=== PATIENT | male | born 1955 | race Caucasian/White ===

== ENCOUNTER 2018-08-06 00:21 | Outpatient (CLI) | payer BC, SELFPAY ==
--- NOTE | 2018-08-06 15:22 | DI.RAD_ITS ---
SYMPTOMS/DIAGNOSIS: RIGHT SHOULDER PAIN, M25.511 RIGHT SHOULDER: There is mild spurring at the AC joint and tip of the acromion. There is mild spurring at the rim of the glenoid. There are a few subchondral cysts near the greater tuberosity. Spurring is also seen at the lesser tuberosity. IMPRESSION: Mild to moderate degenerative changes.
== END 2018-08-06 00:41 ==
PROVIDERS: PCP Internal Medicine; Visit Provider Nurse Practitioner
DX: M25.511 Pain in right shoulder (principal); M19.011 Primary osteoarthritis, right shoulder
CPT/HCPCS: 73030

== ENCOUNTER 2018-12-03 07:03 | Emergency (ER) | payer BC, SELFPAY ==
[2018-12-03 07:08] VITALS: BP 155/83; PULSE 89; RESP 20; TEMP 36.5; O2SAT 97
--- NOTE | 2018-12-03 07:20 | ED.GENADUL_ITS ---
Discharge Plan Disposition Patient Disposition: HOME Condition: Good Discharge Details Chief Complaint: GenMedical Clinical Impression: Abdominal pain, Groin pain Primary Care Provider: Fransisco Morales ED Provider: Yonny Villafuerte Home Meds and New Rx's Prescriptions: No Action omeprazole 20 MG capsule,delayed release(DR/EC) 20 mg PO DAILY RF: 0 alfuzosin 10 MG tablet extended release 24 hr 10 mg PO DAILY Qty: 90 RF: 4 finasteride [Proscar] 5 MG tablet 5 mg PO DAILY Qty: 90 RF: 0 bupropion HCl 150 MG tablet extended release 12 hr 150 mg PO BID RF: 0 ascorbic acid (vitamin C) [Vitamin C] 1,000 MG tablet extended release 1,000 mg PO DAILY RF: 0 cholecalciferol (vitamin D3) 1,000 UNITS tablet 3,000 unit PO DAILY RF: 0 naproxen sodium [Aleve] 220 MG capsule 220 - 440 mg PO PRN PRNRF: 0 Discharge Instructions Instructions: Abdominal Pain (ED) Additional Instructions: If you notice any worsening of your symptoms, or any new symptoms such as vomiting, diarrhea, fever, chills, shortness of breath, chest pain, numbness, weakness, or fainting , please return immediately to the emergency department for reevaluation. Please follow up with your primary care provider or your surgeon as soon as possible for reassessment and reevaluation. As always, it was a pleasure participating in your medical care today. Referrals: Fransisco Morales MD [Primary Care Provider] - Medical Decision Making <Misha Cleaning MD - Last Filed: 12/03/18 07:20> 63 yo male comes in with right sided lower abdomen/groin pain. States he has had prior inguinal hernia repairs but it has been over 2 years. Yesterday he startd to have pain in the right groin/abdomen area and continued today. HAs no inguinal hernia palpable on exam today, no scrotal swelling or tenderness of the testicles to suggest testicular torsion. He does have rlq tenderness without gurading or rebound. Will obain imaging to evaluate for potential appendicitis though I feel it is more likely a inguinal hernia that reduced prior to arrival. pt will be signed out to oncoming provider pending labs and imaging and disposition Differential Diagnosis inguinal hernia, appendicitis, groin strain <Yonny Villafuerte DO - Last Filed: 12/03/18 09:51> Case is signed out to me my my colleague Dr. Ronald Cleaning. We are pending CT results at that time. Laboratory workup is returned negative. CT abdomen pelvis per Dr. Yoo demonstrates no acute process. Laboratory workup shows no concerning red flags of bandemia, leukocytosis or other significant abnormalities. On reassessment the patient's pain is notably improved. On repeat abdominal exam there is no evidence of testicular tenderness or torsion, no abdominal tenderness, no guarding or rebound, no signs of an acute abdomen. Patient's clinical exam is clinically inconsistent with a testicular torsion, incarcerated or strangulated hernia, or acute abdominal process. Patient will be discharged home with close follow-up with his surgeons clinic. We discussed red flags which return. I have extensively reviewed the treatment plan and discharge instructions with the patient and their family. I have addressed all patient concerns at this time. The patient and family was made aware of what symptoms to monitor for that would warrant a return to the emergency department. Discussed the plan with the patient and family, they demonstrate verbal understanding and agreement with our assessment and plan at this time. HPI <Misha Cleaning MD - Last Filed: 12/03/18 07:20> General Mode of arrival: ambulatory . Date/Time Provider Initiated Documentation: 12/03/18 07:04 . Limitations to Documentation: no limitations . Information obtained by: patient . History of Present Illness 63 year old M presents to the emergency department with the chief complaint of groin/abdominal pain, described as moderate, Quality is described as aching, and is localized to the abdomen. Patient reports no radiation. Patient started experiencing this day(s) (1) and it has been constant. No relieving factors improve symptom(s), No exacerbating factors reported . Patient did receive the following treatments prior to arrival, none Related Data Home Medications Medication Instructions Recorded Confirmed bupropion HCl 150 mg PO BID 04/20/14 12/03/18 ascorbic acid (vitamin C) [Vitamin 1,000 mg PO DAILY 11/01/15 12/03/18 C] cholecalciferol (vitamin D3) 3,000 unit PO DAILY 11/01/15 12/03/18 naproxen sodium [Aleve] 220 - 440 mg PO PRN PRN 11/01/15 12/03/18 omeprazole 20 mg PO DAILY tab-cap 01/08/18 12/03/18 alfuzosin 10 mg PO DAILY #90 tab-cap 05/28/18 12/03/18 finasteride [Proscar] 5 mg PO DAILY #90 tab-cap 07/06/18 12/03/18 Previous Rx's Medication Instructions Recorded alfuzosin 10 mg PO DAILY #90 tab-cap 05/28/18 finasteride [Proscar] 5 mg PO DAILY #90 tab-cap 07/06/18 Allergies Allergy/AdvReac Type Severity Reaction Status Date / Time No Known Allergies Allergy Unverified 07/06/18 14:05 General Stated Complaint: GenMedical ARI: 4 Review of Systems <Misha Cleaning MD - Last Filed: 12/03/18 07:20> Review of Systems All systems reviewed & are unremarkable except as noted in HPI and below Constitutional Denies chills, Denies fever(s) and Denies weakness Cardiovascular Denies chest pain and Denies dyspnea Respiratory Denies dyspnea Gastrointestinal Denies vomiting Genitourinary Denies dysuria Musculoskeletal Denies joint swelling Neurologic Denies weakness PFSH <Misha Cleaning MD - Last Filed: 12/03/18 07:20> Medical History BPH (benign prostatic hyperplasia) Cough Depression GERD (gastroesophageal reflux disease) Hammer toe Osteoarthritis Primary osteoarthritis of first carpometacarpal joint of left hand Surgical History Colonoscopy - [facility] [place] (01/22/18) Social History Smoking/Tobacco Use Status: Former Tobacco Use Exam <Misha Cleaning MD - Last Filed: 12/03/18 07:20> Const General: no acute distress Orientation: alert HENMT Head: normal to inspection Ears: external ears normal General nose exam: external nose normal Mouth: moist mucous membranes Eyes General: appearance normal, both eyes and all related structures Neck Neck: normal visual inspection Resp Effort & Inspection: normal respiratory effort and able to speak in complete sentences Cardio Rate: regular rate GI Inspection: normal to inspection Palpation: soft Skin General skin exam: no rashes or lesions noted Neuro General: alert and oriented x3 Extrem General: normal to inspection Psych Mental Status: mental status grossly normal Course <Misha Cleaning MD - Last Filed: 12/03/18 07:20> Vital Signs Temperature 36.5 C 12/03/18 07:08 Pulse 89 12/03/18 07:08 Respiratory Rate 20 12/03/18 07:08 Blood Pressure 155/83 H 12/03/18 07:08 Pulse Oximetry 97 12/03/18 07:08 Temperature 36.5 C 12/03/18 07:08 Temperature Source Temporal Artery Scan 12/03/18 07:08 Pulse 89 12/03/18 07:08 Respiratory Rate 20 12/03/18 07:08 Respiratory Effort Non-Labored 12/03/18 07:08 Blood Pressure 155/83 H 12/03/18 07:08 Pulse Oximetry 97 12/03/18 07:08 Oxygen Delivery Method Room Air 12/03/18 07:08 Oxygen Flow Rate 0 12/03/18 07:08 Sign Out <Misha Cleaning MD - Last Filed: 12/03/18 07:20> Sign Out Data: Sign Out Comment: follow up labs and imaging for abdominal/groin pain Last updated by Misha Cleaning MD at 12/03/18 07:21
[2018-12-03] MEDS: Normal Saline 1,000 ML 1000 ML IV (07:27)
[2018-12-03] MEDS: Ketorolac 15 MG/ML VIAL IVP (07:27)
[2018-12-03 07:33] LABS: Abs Immature Grans 0.01 k/cumm (0.0-0.09); Absolute Basophil Count 0.02 k/cumm (0.0-0.2); Absolute Eosinophil Count 0.25 k/cumm (0.0-0.7); Absolute Monocyte Count 0.67 k/cumm (0.11-0.7); Absolute Neutrophil Count 3.07 k/cumm (1.2-6.7); Basophils % 0.3; Eosinophils % 3.9; HGB 16.1 g/dL (13.5-17.5); Immature Grans % 0.2; Lymphocytes % 37.4; Mean Corp. HGB Concentration 34.3 g/dL (32.0-36.0); Mean Corpuscular Hemoglobin 29.9 pg (27.0-33.0); Mean Corpuscular Volume 87.2 fL (80-95); Mean Platelet Volume 9.6 fL (8.0-11.0); Monocytes % 10.4; Neutrophils % 47.8; Platelet Count 196 x1000/uL (130-400); RBC 5.39 m/cumm (4.50-6.00); RBC Distribution Width 13.5 % (11.8-14.1); White Blood Cell Count 6.42 k/cumm (4.4-10.8)
--- NOTE | 2018-12-03 07:34 | NUR.NOTE ---
Nursing Note: Pt awake and alert, reports L groin pain worse last night but on going for last few weeks. no n/v. afebrile. voiding normally. hx of hernia repair to L side. awaiting CT scan and urine spec. no acute distress, will continue to monitor.
[2018-12-03 07:45] LABS: ALT 40 U/L (12-78); AST 19 U/L (15-37); Albumin 3.7 g/dL (3.4-5.0); Alkaline Phosphatase 40 U/L (46-116); Anion Gap 10.2 mmol/L (3-11); BUN 20 mg/dL (7-18); Bilirubin, Total 0.5 mg/dL (0.2-1.0); CO2 27.8 mmol/L (21.0-32.0); CREATININE 1.38 mg/dL (0.70-1.30); Calcium 9.6 mg/dL (8.5-10.1); Chloride 106 mmol/L (98-107); Estimated GFR 51.71 (mL/min/1.73m2); Glucose 119 mg/dL (70-100); Lipase 300 U/L (73-393); Potassium 3.8 mmol/L (3.5-5.1); Sodium 144 mmol/L (136-145); Total Protein 6.8 g/dL (6.4-8.2)
[2018-12-03 07:47] LABS: INR 1.1 (0.9-1.1); PTT Activated 22.5 sec (21.0-31.4)
[2018-12-03] MEDS: Omnipaque 350 MG/ML 100 ML BTL IJ (08:22)
--- NOTE | 2018-12-03 08:25 | DI.CT_ITS ---
SYMPTOM/DIAGNOSIS: RT SIDED ABD PAIN ABDOMEN AND PELVIC CT: Comparison is made with noncontrast exam dated 04/20/14. Images were performed from the lung bases through the ischial tuberosities after IV and without oral contrast. The heart size is normal. The lung bases show mild dependent changes. The liver, gallbladder, spleen, pancreas and adrenals are unremarkable. No urinary tract calculi or hydronephrosis is seen. No bowel dilatation or inflammatory changes are seen. There is a normal quantity of stool. The aorta is normal in diameter. The prostate is enlarged and impresses on the base of the bladder. The urinary bladder is somewhat distended. No mass, wall thickening or bladder calcification is seen. Prostate calcifications are noted. Degenerative changes are seen in the lumbar spine. IMPRESSION: No acute abnormality.
[2018-12-03 08:33] VITALS: BP 126/64; PULSE 90; RESP 18; TEMP 36.7; O2SAT 97
--- NOTE | 2018-12-03 08:35 | NUR.NOTE ---
Nursing Note: reports feeling better. urine specimen sent. no acute changes. resting comfortably in bed
[2018-12-03 08:41] LABS: Bilirubin Negative (Negative); Blood Negative (Negative); Clarity Clear; Glucose Negative (Negative); Ketones Negative (Negative); Leukocyte Esterase Negative (Negative); Nitrite Negative (Negative); Specific Gravity <= 1.005 (1.005-1.025); Urobilinogen 0.2 EU/dL (Up TO 0.2)
[2018-12-03 13:40] LABS: ALT 43 U/L (12-78); AST 20 U/L (15-37); Albumin 3.8 g/dL (3.4-5.0); Alkaline Phosphatase 40 U/L (46-116); Bilirubin, Direct 0.11 mg/dL (0.00-0.20); Bilirubin, Total 0.4 mg/dL (0.2-1.0); Total Protein 6.8 g/dL (6.4-8.2)
== END 2018-12-03 09:59 | disposition home or self-care (01) ==
PROVIDERS: Emergency Medicine; Emergency Provider Student in an Organized Health Care Education/Training Program; PCP Internal Medicine
DX: R10.31 Right lower quadrant pain (principal)
CPT/HCPCS: 36415; 80053; 80076; 83690; 96361; 96374; 99285; 74177; 81003; 83735; 85025; 85610; 85730; 99284; J1885; J3490

== ENCOUNTER 2019-09-29 14:57 | Outpatient (REF) | payer BC, SELFPAY ==
[2019-09-29 22:17] LABS: Abs Immature Grans 0.01 k/cumm (0.0-0.09); Absolute Basophil Count 0.02 k/cumm (0.0-0.2); Absolute Eosinophil Count 0.01 k/cumm (0.0-0.7); Absolute Lymphocyte Count 0.57 k/cumm (1.2-3.4); Absolute Monocyte Count 0.34 k/cumm (0.11-0.7); Absolute Neutrophil Count 2.73 k/cumm (1.2-6.7); Basophils % 0.5; Eosinophils % 0.3; HCT 44.8 % (40.0-50.0); HGB 15.4 g/dL (13.5-17.5); Immature Grans % 0.3; Lymphocytes % 15.5; Mean Corp. HGB Concentration 34.4 g/dL (32.0-36.0); Mean Corpuscular Hemoglobin 30.1 pg (27.0-33.0); Mean Corpuscular Volume 87.7 fL (80-95); Mean Platelet Volume 10.1 fL (8.0-11.0); Monocytes % 9.2; Neutrophils % 74.2; Platelet Count 107 x1000/uL (130-400); RBC 5.11 m/cumm (4.50-6.00); RBC Distribution Width 13.5 % (11.8-14.1); White Blood Cell Count 3.68 k/cumm (4.4-10.8)
[2019-09-29 22:53] LABS: ALT 48 U/L (16-63); AST 31 U/L (15-37); Albumin 3.4 g/dL (3.4-5.0); Alkaline Phosphatase 43 U/L (46-116); BUN 19 mg/dL (7-18); Bilirubin, Total 0.3 mg/dL (0.2-1.0); CREATININE 1.33 mg/dL (0.70-1.30); Calcium 8.5 mg/dL (8.5-10.1); Chloride 108 mmol/L (98-107); Creatine Kinase 86 U/L (39-308); FREE T4 0.89 ng/dL (0.76-1.46); Glucose 119 mg/dL (70-100); NT-proBNP 193 pg/mL; Potassium 3.9 mmol/L (3.5-5.1); Sodium 145 mmol/L (136-145); TSH 0.86 uIU/mL (0.36-3.74); Total Protein 6.2 g/dL (6.4-8.2)
[2019-09-29 23:01] LABS: ESR 9 mm/hr (1-20)
[2019-10-03 16:49] LABS: B. miyamotoi PCR Negative (Negative); Babesia divergens/MO-1 Negative (Negative); Babesia duncani Negative (Negative); Babesia microti Negative (Negative); Ehrlichia chaffeensis Negative (Negative); Ehrlichia ewingii/canis Negative (Negative); Ehrlichia muris eauclairensis Negative (Negative)
[2019-10-04 08:17] LABS: Lyme Ab w Rflx to Lyme Confirm Negative (Negative)
[2019-10-04 08:21] LABS: Anaplasma phagocytophilum Positive (Negative)
== END 2019-09-29 15:17 ==
LOC: NCHCN 14:57
PROVIDERS: PCP Internal Medicine; Visit Provider Internal Medicine
DX: M25.50 Pain in unspecified joint (principal); M79.10 Myalgia, unspecified site; R06.09 Other forms of dyspnea
CPT/HCPCS: 80053; 82550; 85652; 87798; 83880; 84439; 84443; 85025; 86140; 86618

== ENCOUNTER 2020-04-17 14:56 | Outpatient (REF) | payer BC, SELFPAY ==
[2020-04-17 20:32] LABS: HGB 15.5 g/dL (13.5-17.5); Mean Corp. HGB Concentration 34.4 g/dL (32.0-36.0); Mean Corpuscular Hemoglobin 29.9 pg (27.0-33.0); Mean Corpuscular Volume 86.9 fL (80-95); Mean Platelet Volume 10.4 fL (8.0-11.0); Platelet Count 200 x1000/uL (130-400); RBC 5.18 m/cumm (4.50-6.00); RBC Distribution Width 13.5 % (11.8-14.1); White Blood Cell Count 6.79 k/cumm (4.4-10.8)
[2020-04-17 20:47] LABS: ALT 43 U/L (16-63); AST 27 U/L (15-37)
[2020-04-19 11:03] LABS: Hepatitis C Ab w Rflx HCV PCR Negative (Negative)
== END 2020-04-17 15:16 ==
LOC: NCHCN 14:56
PROVIDERS: PCP Internal Medicine; Visit Provider Internal Medicine
DX: M25.512 Pain in left shoulder (principal); R94.5 Abnormal results of liver function studies; Z11.59 Encounter for screening for other viral diseases
CPT/HCPCS: 85027; 86803; 84450; 84460

== ENCOUNTER 2020-07-06 08:57 | Outpatient (REF) | payer BC, SELFPAY ==
[2020-07-09 09:05] LABS: PSA, Screening 2.1 ng/mL (0.0-4.5)
== END 2020-07-06 09:17 ==
LOC: LBN 08:57
PROVIDERS: PCP Internal Medicine; Visit Provider Urology
DX: N40.1 Benign prostatic hyperplasia with lower urinary tract symptoms (principal); Z80.42 Family history of malignant neoplasm of prostate; N13.8 Other obstructive and reflux uropathy
CPT/HCPCS: 84153

== ENCOUNTER 2021-05-15 00:42 | Emergency (ER) | payer BC, SELFPAY ==
--- NOTE | 2021-05-15 00:30 | RT.EKG_ITS ---
APPROVED REPORT Exam: Resting ECG Reason for Exam: chest pain Patient Location: E HR:73 bpm ECG Measurements Heart Rate 73 AXIS NH 166 P 65 QRSd 94 QRS -2 QT 377 T 26 QTc 416 Conclusion Sinus rhythm...normal P axis, V-rate 60- 99 Ventricular premature complex...V complex w/ short R-R interval
--- NOTE | 2021-05-15 00:45 | DI.CT_ITS ---
Exam(s) CT THORAX CTA EXAM: CT THORAX CTA CLINICAL HISTORY: concern for dissection. TECHNIQUE: Imaging Protocol: CT angiography of the chest was performed using pulmonary embolus frederic col. Multi planar reconstructions were performed. CONTRAST MATERIAL: Intravenous: Omnipaque 350 Contrast volume: 64 cc FINDINGS: CHEST: PULMONARY ARTERIES: Bolus injection is inadequate for assessment of the pulmonary artery tree. All t he contrast is in the left side of the heart and thoracic aorta. LUNGS: There are no infiltrates nor evidence of pulmonary infarction.. Mild dependent markings both l charles bases. No pleural effusions. No significant focal findings in the trachea and mainstem bronchi. MEDIASTINUM: There is no hilar nor mediastinal adenopathy. Visualized thyroid unremarkable. CARDIAC: Heart size is upper normal. There is no pericardial effusion.Caliber of the thoracic aorta is within normal limits. Approximately equal size of the ventricles. PARTIALLY VISUALIZED UPPERMOST ABDOMEN: No obvious findings OSSEOUS: No significant osseous lesions.. IMPRESSION: 1. Bolus injection is not adequate for assessment for pulmonary emboli.There is no evidence of pulmon poppy infarction. No pleural effusions. 2. Heart size upper normal. No pericardial effusion. Approximately equal size ventricles. 3. No evidence of aortic dissection. RADIATION DOSE DELIVERED: 422.44mGy.cm Total DLP DATA REPOSITORY: All CT scans at this facility are submitted to the National Radiology Data Registry (NRDR) Dose Index Registry (DIR) with the [employer] (ACR). RADIATION OPTIMIZATION: All CT scans at this facility use at least one of these dose optimization te chniques: automated exposure control; mA and/or kV adjustment per patient size (includes targeted exa ms where dose is matched to clinical indication); or iterative reconstruction.
[2021-05-15 00:48] VITALS: BP 159/88; PULSE 71; RESP 18; TEMP 36.1; O2SAT 100
--- NOTE | 2021-05-15 00:51 | W.ED.GENAD ---
Discharge Plan Disposition Patient Disposition: HOME Condition: Stable Discharge Details Clinical Impression: Jaw pain, Arm pain, left, Upper back pain Primary Care Provider: Fransisco Morales ED Provider: Misha Cleaning Home Meds and New Rx's Prescriptions: Continued omeprazole 20 MG capsule,delayed release(DR/EC) 20 mg PO DAILY RF: 0 alfuzosin 10 MG tablet extended release 24 hr 10 mg PO DAILY Qty: 90 RF: 4 bupropion HCl 150 MG tablet extended release 12 hr 150 mg PO BID RF: 0 Vitamin C 1,000 MG tablet extended release 1,000 mg PO DAILY RF: 0 cholecalciferol (vitamin D3) 1,000 UNITS tablet 3,000 unit PO DAILY RF: 0 naproxen sodium [Aleve] 220 MG capsule 220 - 440 mg PO PRN PRNRF: 0 Discharge Instructions Additional Instructions: your blood work, ekg, and cat scan did not show any concerning findings at this time follow up with your primary care provider as soon as possible if you feel more ill, have worsening pain or difficulty breathing return to the emergency department Medical Decision Making 65 yo male with hx of bph and remote smoking history comes in with chief complaint of left shoulder pain radiating down the arm and jaw pain as well starting around midnight and woke him up from sleep. He states all day yesterday he felt fine and had no symptoms. He states his pain has improved but still has some mild jaw discomfort. He denies dyspnea or chest pain/pressure currently or abdomen pain. He did note some upper back pain none now. He is in no distress. Is well over 2 weeks from his 2nd covid vaccine per patient. He has normal oropharynx, no pain over the hyoid or restricted neck movements and midline uvula. Normal pulses in the arms bialterally and sensation. He does state chronic issues with his shoulders that is musculoskeletal related, denies any recent trauma or falls. His symptoms could be musculoskeletal but given it woke him up from sleep and had pain radiating down the arm, to the jaw and back concern for dissection vs nstemi, will obtain troponin and cta. Has no tachycardia, hypoxia or evidence of dvt so doubt dissection labs and cta negative he remains stable asymptomatic now. Suspect musculoskeletal pain but will obtain deltra troponin and ecg and monitor, heart score is 3 so if repeat testing negative feel he would be safe for d/c and follow up with pcp pt reamins asymptomatic and repeat ecg and troponin reassuring. Given heart score of 3 feel he is low risk enough to follow up with his pcp, return precautions given Differential Diagnosis Differential Diagnosis: nstemi, dissection, musculoskeletal pain Medical Records Medical records reviewed: Yes I reviewed the patient's medical records. Imaging Data Radiologic Study: Attestation: I personally reviewed and interpreted this imaging study as follows: Imaging: CT Scan Radiologist's impression: no acute findings Lab Data Lab results reviewed: Yes I reviewed the patient's lab results. ECG Data Attestation: I personally reviewed and interpreted this ECG (s) as follows: Prior ECG tracings: not available for review Interpretation: sinus rhythm, rate of 73, pr 166, no acute st t wave ischemic findings, occasional pvc 2nd ekg sinus rhythm, occasional pvc, pr 168, qtc 443 no significant changes from first ekg HPI General Mode of arrival: ambulatory. Date/Time Provider Initiated Documentation: 05/15/21 00:43. Limitations to Documentation: no limitations. Information obtained by: patient. History of Present Illness 65 year old M presents to the emergency department with the chief complaint of jaw and arm pain, described as moderate, Quality is described as aching, Patient started experiencing this hour(s) (1) and it has been constant. No relieving factors improve symptom(s), No exacerbating factors reported . Patient did receive the following treatments prior to arrival, none Related Data Home Medications Medication Instructions Recorded Confirmed bupropion HCl 150 mg PO BID 04/20/14 05/15/21 Vitamin C 1,000 mg PO DAILY 11/01/15 05/15/21 cholecalciferol (vitamin D3) 3,000 unit PO DAILY 11/01/15 05/15/21 naproxen sodium [Aleve] 220 - 440 mg PO PRN PRN 11/01/15 05/15/21 omeprazole 20 mg PO DAILY tab-cap 01/08/18 05/15/21 alfuzosin 10 mg PO DAILY #90 tab-cap 05/28/18 05/15/21 Previous Rx's Medication Instructions Recorded alfuzosin 10 mg PO DAILY #90 tab-cap 05/28/18 Allergies Allergy/AdvReac Type Severity Reaction Status Date / Time No Known Allergies Allergy Unverified 05/15/21 00:53 General ARI: 4 Review of Systems All systems reviewed & are unremarkable except as noted in HPI and below Constitutional Constitutional: Denies chills, Denies fever(s) and Denies weakness Cardiovascular Cardiovascular: Denies chest pain and Denies dyspnea Respiratory Respiratory: Denies cough and Denies dyspnea Gastrointestinal Gastrointestinal: Denies abdominal pain, Denies nausea and Denies vomiting Neurologic Neurologic: Denies weakness [facility] Medical History (Updated 05/15/21 @ 04:06 by Misha Cleaning MD) BPH (benign prostatic hyperplasia) Cough Depression GERD (gastroesophageal reflux disease) Hammer toe Osteoarthritis Penile adhesions w/skin bridging Primary osteoarthritis of first carpometacarpal joint of left hand Surgical History (Updated 01/25/18 @ 09:52 by Birgit Restrepo) Colonoscopy - [facility] (01/22/18) Social History Smoking/Tobacco Use Status: Former Tobacco Use Smoking risk assessment performed?: Yes Alcohol Intake: current Alcohol Intake frequency: a few times a week Drug use: Never Do you feel safe at home: Yes Do you feel safe in your relationship?: Yes Exam Const General: no acute distress Orientation: alert HENMT Head: normal to inspection Ears: external ears normal General nose exam: external nose normal Mouth: moist mucous membranes Eyes General: appearance normal, both eyes and all related structures Neck Neck: normal visual inspection Chest Chest: normal inspection of the chest Resp Effort & Inspection: normal respiratory effort and able to speak in complete sentences Cardio Rate: regular rate GI Palpation: soft and nontender Skin General skin exam: no rashes or lesions noted Neuro General: patient alert and patient oriented x3 Extrem General: normal to inspection Psych Mental Status: mental status grossly normal
[2021-05-15 01:00] VITALS: RESP 16
[2021-05-15 01:01] LABS: Abs Immature Grans 0.02 10^3/uL (0.0-0.06); Absolute Basophil Count 0.04 10^3/uL (0.0-0.2); Absolute Eosinophil Count 0.35 10^3/uL (0.0-0.7); Absolute Lymphocyte Count 3.98 10^3/uL (1.2-3.4); Absolute Monocyte Count 0.93 10^3/uL (0.1-0.8); Absolute Neutrophil Count 4.44 10^3/uL (1.2-6.7); Basophils % 0.4; Eosinophils % 3.6; HCT 44.6 % (40.0-50.0); HGB 14.9 g/dL (13.5-17.5); Immature Grans % 0.2; Lymphocytes % 40.8; MCH 29.9 pg (27.0-33.0); MCHC 33.4 % (32.0-36.0); MCV 89.6 fL (80-95); MPV 9.5 fL (8.0-11.0); Monocytes % 9.5; Neutrophils % 45.5; Nucleated RBC 0 %; Platelet Count 175 10^3/uL (130-400); RBC 4.98 10^6/uL (4.36-5.78); RDW 13.1 % (11.8-14.1); WBC 9.76 10^3/uL (4.4-10.8)
[2021-05-15 01:18] LABS: ALT 33 U/L (16-63); AST 18 U/L (15-37); Albumin 3.6 g/dL (3.4-5.0); Alkaline Phosphatase 50 U/L (46-116); Anion Gap 10.2 mmol/L (3-11); BUN 28 mg/dL (7-18); Bilirubin, Total 0.3 mg/dL (0.2-1.0); CO2 26.8 mmol/L (21.0-32.0); CREATININE 1.4 mg/dL (0.70-1.30); Calcium 9.5 mg/dL (8.5-10.1); Chloride 106 mmol/L (98-107); Estimated GFR 50.55 (mL/min/1.73m2); Glucose 108 mg/dL (74-106); Magnesium 2.1 mg/dL (1.8-2.4); Potassium 3.8 mmol/L (3.5-5.1); Sodium 143 mmol/L (136-145); Total Protein 6.6 g/dL (6.4-8.2)
[2021-05-15 01:20] LABS: Troponin I < 0.05 ng/mL (<0.06)
[2021-05-15] MEDS: Omnipaque 350 MG/ML 100 ML BTL IJ (01:26)
[2021-05-15] MEDS: Normal Saline - Diluent 50 ML VIAL IV (01:27)
[2021-05-15] MEDS: Normal Saline Flush 10 ML SYR IVP (01:27)
[2021-05-15 01:28] VITALS: BP 139/82; PULSE 67; RESP 15; TEMP 36.9; O2SAT 99
--- NOTE | 2021-05-15 01:34 | DI.VRAD_ITS ---
PROCEDURE INFORMATION: Exam: CTA Chest With Contrast Exam date and time: 05/15/2021 12:54 AM Age: 65 years old Clinical indication: Shortness of breath; Patient HX: Diaphoretic, R arm pain, SOB TECHNIQUE: Imaging protocol: Computed tomographic angiography of the chest with contrast. 3D rendering (Not supervised by radiologist): MIP and/or 3D reconstructed images were created by the technologist. Radiation optimization: All CT scans at this facility use at least one of these dose optimization techniques: automated exposure control; mA and/or kV adjustment per patient size (includes targeted exams where dose is matched to clinical indication); or iterative reconstruction. Contrast material: OMNIPAQUE 350; Contrast volume: 64 ml; Contrast route: INTRAVENOUS (IV); COMPARISON: CT Abdomen^ROUTINE ABDOMEN PELVIS WITH CONTRAST (Adult) 12/03/2018 8:18 AM FINDINGS: Pulmonary arteries: The pulmonary artery is suboptimally opacified to assess for PE. No obvious central PE is evident Aorta: Unremarkable. No aortic aneurysm. No aortic dissection. Lungs: Basilar dependent pulmonary atelectasis is present. Pleural spaces: Unremarkable. No pneumothorax. No pleural effusion. Heart: Unremarkable. No cardiomegaly. No pericardial effusion. Lymph nodes: Unremarkable. No enlarged lymph nodes. Liver: Hepatic steatosis is present. Bones/joints: Unremarkable. No acute fracture. Soft tissues: Unremarkable. IMPRESSION: No acute findings Dictated and Authenticated by: Garry Guardado MD. Ordering:RAY Cabral MD
[2021-05-15 03:04] VITALS: BP 118/76; PULSE 69; RESP 16; TEMP 36.9; O2SAT 98
--- NOTE | 2021-05-15 03:45 | RT.EKG_ITS ---
APPROVED REPORT Exam: Resting ECG Reason for Exam: gustabo/cristina/ Patient Location: E HR:74 bpm ECG Measurements Heart Rate 74 AXIS IL 168 P 48 QRSd 89 QRS -6 QT 400 T 8 QTc 443 Conclusion Sinus rhythm...normal P axis, V-rate 60- 99 Ventricular premature complex...V complex w/ short R-R interval
[2021-05-15 03:58] LABS: Troponin I < 0.05 ng/mL (<0.06)
== END 2021-05-15 04:10 | disposition home or self-care (01) ==
PROVIDERS: Emergency Provider Emergency Medicine; PCP Internal Medicine
DX: M25.512 Pain in left shoulder (principal); R68.84 Jaw pain; M79.602 Pain in left arm; M54.6 Pain in thoracic spine
CPT/HCPCS: 36415; 71275; 80053; 93005; 99285; 83735; 84484; 85025; 93010; 99284; J3490

== ENCOUNTER 2021-05-28 08:23 | Outpatient (REF) | payer MEDICARE, SELFPAY ==
[2021-05-28 14:20] LABS: Hemoglobin A1C 5.5 % (<5.7)
[2021-05-28 14:32] LABS: Anion Gap 7.7 mmol/L (3-11); BUN 29 mg/dL (7-18); CO2 29.3 mmol/L (21.0-32.0); CREATININE 1.3 mg/dL (0.70-1.30); Calcium 9.5 mg/dL (8.5-10.1); Chloride 108 mmol/L (98-107); Estimated GFR 55.06 (mL/min/1.73m2); Glucose 83 mg/dL (74-106); Potassium 4.6 mmol/L (3.5-5.1); Sodium 145 mmol/L (136-145)
== END 2021-05-28 08:24 | disposition home or self-care (01) ==
LOC: NCHCN 08:23
PROVIDERS: PCP Internal Medicine; Visit Provider Internal Medicine
DX: Z00.00 Encounter for general adult medical examination without abnormal findings (principal); M19.90 Unspecified osteoarthritis, unspecified site; F32.9 Major depressive disorder, single episode, unspecified
CPT/HCPCS: 80048; 83036

== ENCOUNTER → 2021-07-05 08:05 | Outpatient (BNVA) | payer MEDICARE, BC, SELFPAY | PROVIDERS: PCP Internal Medicine; Visit Provider Urology | DX: N40.1 Benign prostatic hyperplasia with lower urinary tract symptoms (principal); N13.8 Other obstructive and reflux uropathy; Z79.899 Other long term (current) drug therapy | CPT/HCPCS: 99214 ==

== ENCOUNTER → 2021-07-15 14:01 | Outpatient (BNVA) | payer MEDICARE, BC, SELFPAY | PROVIDERS: PCP Internal Medicine; Referring Provider Internal Medicine; Visit Provider Nurse Practitioner Gerontology | DX: N40.1 Benign prostatic hyperplasia with lower urinary tract symptoms (principal); N13.8 Other obstructive and reflux uropathy | CPT/HCPCS: 81003; 99214 ==

== ENCOUNTER → 2021-08-01 13:56 | Outpatient (BNVA) | payer MEDICARE, BC, SELFPAY | PROVIDERS: PCP Internal Medicine; Referring Provider Internal Medicine; Visit Provider Nurse Practitioner Gerontology | DX: N40.1 Benign prostatic hyperplasia with lower urinary tract symptoms (principal); N13.8 Other obstructive and reflux uropathy; Z80.42 Family history of malignant neoplasm of prostate; Z79.899 Other long term (current) drug therapy | CPT/HCPCS: 99213 ==

== ENCOUNTER 2021-09-06 15:45 | Outpatient (REF) | payer MEDICARE, BC, SELFPAY ==
[2021-09-08 14:05] LABS: COVID-19 RT-PCR UVMMC Result Negative (Negative)
== END 2021-09-06 15:46 | disposition home or self-care (01) ==
LOC: NCHCN 15:45
PROVIDERS: PCP Internal Medicine; Visit Provider Nurse Practitioner Family
DX: Z20.822 Contact with and (suspected) exposure to COVID-19 (principal); R09.81 Nasal congestion
CPT/HCPCS: U0003

== ENCOUNTER → 2021-09-24 12:52 | Outpatient (BNVA) | payer MEDICARE, BC, SELFPAY | PROVIDERS: PCP Family Medicine; Referring Provider Family Medicine; Visit Provider Surgery | DX: R10.31 Right lower quadrant pain (principal); R10.32 Left lower quadrant pain | CPT/HCPCS: 99202; 99213 ==

== ENCOUNTER 2021-10-03 01:04 | Outpatient (CLI) | payer MEDICARE, BC, SELFPAY ==
--- NOTE | 2021-10-03 08:30 | DI.CT_ITS ---
Exam(s) CT ABDOMEN PELVIS W EXAM: CT ABDOMEN PELVIS W CLINICAL HISTORY: ? recurrent inguinal hernias,BILAT INGUINAL PAIN,R10.32,R10.31. TECHNIQUE: Imaging Protocol: Axial computed tomography images with coronal and sagittal reformatted images were created and reviewed CONTRAST MATERIAL: Intravenous: Omnipaque 350 Contrast volume:100 ml Oral: yes CT CT THORAX CTA from 05/15/2021 FINDINGS: ABDOMEN: Lung Bases: Normal where visualized. Liver: Normal density. No measurable mass. Gallbladder and biliary tract: No radiodense calculus or dilation. Pancreas: Normal density, no abnormal calcifications or inflammatory process. Spleen: Normal. Kidneys: Normal size, contour and axis. No radiodense stones or obstructive uropathy. No masses seen. Adrenal glands: No masses seen. Abdominal Aorta: Abdominal portion non-dilated. Mild atherosclerotic changes. PELVIS: Bladder: Mild wall thickening. No calculi.No focal mass. Bowel: No obstruction or bowel wall thickening. Appendix normal. Peritoneal cavity: No ascites, collection or mesenteric inflammatory response. Bones: Degenerative changes greatest at L4-5 and L5-S1.. Reproductive organs: Enlarged prostate, impressing on the bladder. Lymph nodes: Unremarkable. Soft tissues: Prior bilateral inguinal hernia repair. No evidence of recurrence hernia or fluid huan ection. No evidence of mass or adenopathy. Impression: Previous bilateral inguinal hernia repair. No evidence of recurrence. RADIATION DOSE DELIVERED: 852.03mGy.cm Total DLP DATA REPOSITORY: All CT scans at this facility are submitted to the National Radiology Data Registry (NRDR) Dose Index Registry (DIR) with the [employer] (ACR). RADIATION OPTIMIZATION: All CT scans at this facility use at least one of these dose optimization te chniques: automated exposure control; mA and/or kV adjustment per patient size (includes targeted exa ms where dose is matched to clinical indication); or iterative reconstruction.
[2021-10-03 14:34] LABS: CREATININE 1.4 mg/dL (0.70-1.30)
[2021-10-04 18:48] LABS: PSA, Diagnostic 2.4 ng/mL (0.0-4.5)
== END 2021-10-03 01:24 ==
PROVIDERS: Urology; PCP Family Medicine; Visit Provider Surgery
DX: N13.8 Other obstructive and reflux uropathy (principal); N40.1 Benign prostatic hyperplasia with lower urinary tract symptoms; Z80.42 Family history of malignant neoplasm of prostate; Z01.818 Encounter for other preprocedural examination; R10.31 Right lower quadrant pain; R10.32 Left lower quadrant pain
CPT/HCPCS: 74177; 82565; 84153

== ENCOUNTER → 2021-10-07 13:21 | Outpatient (BNVA) | payer MEDICARE, BC, SELFPAY | PROVIDERS: PCP Family Medicine; Referring Provider Family Medicine; Visit Provider Urology | DX: R30.0 Dysuria (principal); N47.5 Adhesions of prepuce and glans penis | CPT/HCPCS: 81003; 99213 ==

== ENCOUNTER → 2021-10-24 13:56 | Outpatient (BNVA) | payer MEDICARE, BC, SELFPAY | PROVIDERS: PCP Family Medicine; Visit Provider Urology | DX: N40.1 Benign prostatic hyperplasia with lower urinary tract symptoms (principal); N13.8 Other obstructive and reflux uropathy; Z80.42 Family history of malignant neoplasm of prostate; N48.89 Other specified disorders of penis | CPT/HCPCS: 99213 ==

== ENCOUNTER → 2021-12-13 07:53 | Outpatient (BNVA) | payer MEDICARE, SELFPAY | PROVIDERS: PCP Family Medicine; Referring Provider Family Medicine; Visit Provider Urology | DX: N48.89 Other specified disorders of penis (principal); N40.1 Benign prostatic hyperplasia with lower urinary tract symptoms; N13.8 Other obstructive and reflux uropathy | CPT/HCPCS: 99213 ==

== ENCOUNTER → 2022-06-10 08:02 | Outpatient (BNVA) | payer MEDICARE, SELFPAY | PROVIDERS: PCP Family Medicine; Referring Provider Family Medicine; Visit Provider Urology | DX: R39.12 Poor urinary stream (principal); N48.89 Other specified disorders of penis; N40.1 Benign prostatic hyperplasia with lower urinary tract symptoms | CPT/HCPCS: 51798; 99214 ==

== ENCOUNTER → 2022-12-02 08:02 | Outpatient (BNVA) | payer MEDICARE, SELFPAY | PROVIDERS: PCP Family Medicine; Referring Provider Family Medicine; Visit Provider Urology | DX: N40.1 Benign prostatic hyperplasia with lower urinary tract symptoms (principal); N13.8 Other obstructive and reflux uropathy; Z80.42 Family history of malignant neoplasm of prostate; R97.20 Elevated prostate specific antigen [PSA] | CPT/HCPCS: 99213 ==

== ENCOUNTER 2022-12-02 12:57 | Outpatient (REF) | payer MEDICARE, SELFPAY ==
[2022-12-02 18:54] LABS: PSA, Diagnostic 3.2 ng/mL (<=4.5)
== END 2022-12-02 12:58 | disposition home or self-care (01) ==
LOC: LBN 12:57
PROVIDERS: PCP Family Medicine; Visit Provider Urology
DX: R97.20 Elevated prostate specific antigen [PSA] (principal); Z80.42 Family history of malignant neoplasm of prostate
CPT/HCPCS: 84153

== ENCOUNTER 2023-03-09 00:41 | Outpatient (CLI) | payer MEDICARE, SELFPAY ==
--- NOTE | 2023-03-09 | DI.RAD_ITS ---
Exam(s) XR KNEE LT 3V AP,LAT,LUZ ELENA EXAM: XR KNEE LT 3V AP,LAT,LUZ ELENA CLINICAL HISTORY: LT KNEE OA, M17.9. TECHNIQUE: 2D digital imaging was performed. COMPARISON: No exams were available for comparison FINDINGS: 3 views No evidence of acute fracture but there is a joint effusion noted in the suprapatellar bursa. There are mild-moderate degenerative changes in the medial compartment Lateral compartment unremarkable. Patellofemoral compartment appears unremarkable. Bone density normal. No osseous lesions IMPRESSION: No fractures. Degenerative changes in the medial compartment. There is a joint effusion. DATA REPOSITORY: RADIATION DOSE DELIVERED:
== END 2023-03-09 01:01 ==
LOC: DI 00:41
PROVIDERS: PCP Family Medicine; Visit Provider Internal Medicine
DX: M17.9 Osteoarthritis of knee, unspecified (principal)
CPT/HCPCS: 73562

== ENCOUNTER → 2023-06-02 07:53 | Outpatient (BNVA) | payer MEDICARE, SELFPAY | PROVIDERS: PCP Family Medicine; Visit Provider Urology | DX: N40.1 Benign prostatic hyperplasia with lower urinary tract symptoms (principal); N13.8 Other obstructive and reflux uropathy; Z80.42 Family history of malignant neoplasm of prostate | CPT/HCPCS: 99213 ==

== ENCOUNTER 2023-06-10 09:26 | Outpatient (REF) | payer MEDICARE, SELFPAY ==
[2023-06-10 18:35] LABS: Anion Gap 8.9 mmol/L (3-11); BUN 20 mg/dL (7-18); CO2 28.1 mmol/L (21.0-32.0); CREATININE 1.1 mg/dL (0.70-1.30); Calcium 9.7 mg/dL (8.5-10.1); Calculated LDL 150 mg/dL (<100); Chloride 106 mmol/L (98-107); Cholesterol 232 mg/dL (<200); Estimated GFR 72.67 (mL/min/1.73m2); Glucose 89 mg/dL (74-106); HDL Cholesterol 69 mg/dL (40-60); Potassium 4.8 mmol/L (3.5-5.1); Sodium 143 mmol/L (136-145); Triglyceride 69 mg/dL (<150)
[2023-06-11 20:52] LABS: PSA, Screening 2.8 ng/mL (<=4.5)
== END 2023-06-10 09:27 | disposition home or self-care (01) ==
LOC: NCHCN 09:26
PROVIDERS: PCP Family Medicine; Visit Provider Family Medicine
DX: Z00.00 Encounter for general adult medical examination without abnormal findings (principal); F32.9 Major depressive disorder, single episode, unspecified; N40.0 Benign prostatic hyperplasia without lower urinary tract symptoms
CPT/HCPCS: 80048; 80061; 84153

== ENCOUNTER 2023-06-10 09:35 | Emergency (ER) | payer MEDICARE, SELFPAY ==
[2023-06-10 09:37] VITALS: BP 137/82; PULSE 93; RESP 18; TEMP 36.8; O2SAT 100
--- OUTSIDE RECORDS SUMMARY | 2023-06-10 09:42 | XMS_ITS | Continuity of Care Document ---
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, Allergies, Adverse Reactions, Alerts No Known Medication Allergies Functional Status 04/28/23 Other exposure to Infectious Disease Non e Medications ibuprofen 400 mg =, Oral, every 6 hr, PRN as needed for pain, 0 Refill(s) Start Date: 04/28/23 Status: Ordered Procedures Procedure Date Related Diagnosis Body Site Status History of hernia repair Completed Vital Signs Most recent to oldest [Reference Range]: 1 Peripheral Pulse Rate [60-100 bpm] 78 bp m (04/28/23 9:32 AM) Blood Pressure [90-140/60-90 mmHg] 118/7 6mmHg (04/28/23 9:32 AM) Weight 65.77 kg (04/28/23 9:32 AM) Weight Measured (lbs) 144.998 lb (04/28/23 9:32 AM) Height 162.56 cm (04/28/23 9:32 AM) Height/Length Measured (inches) 64 inch (04/28/23 9:32 AM) BSA Measured 1.72 m2 (04/28/23 9:32 AM) Body Mass Index 24.89 kg/m2 (04/28/23 9:32 AM) Social History Social History Type Response Tobacco Never tobacco user T obacco Use:. Sex Hospital Discharge Instructions Follow Up Care 04/15/2023 11:53:19 With:Return to this practice Address: When: only if needed Physician Outpatient Note * Karen Ch APRN,: PERFORM Event Display: Office Clinic Note Physician Authored Date: [id number] [place] :1955 Age:67 years Sex:Male Visit Date:04/28/2023 Primary Care Physician: Fransisco Morales Chief Complaint Left Knee pain History of Present Illness Ronny is a pleasant 67-year-old man who was kindly referred to the practice for evaluation of left knee pain. ??He states he first noticed the pain about a year ago, but at first it was not all that bothersome.?? It has significantly worsened over the past several months. ??He describes medial knee pain??with occasional instability. ??He has difficulty going uphill and up stairs.?? His pain is worse after periods of inactivity, such as after driving or sitting at the dinner table.?? Occasionallyhe notes a locking at the knee. ??He has noticed snapping.?? He has had no previous injuries to this knee.?? In terms of treatment he has been going to physical therapy, using ice, heat, anti-inflamma tories as well as topical pain relievers.?? Despite these measures, he continues to have pain.?? Heis retired from [employer],??but continues to be very active around his home with chores, walking his dog.?? His therapist was concerned that??the pain and swelling could be due to gout, Lyme. ??He does have a history of Lyme disease, was successfully treated.?? Occasionally he has swelling at the knee, but denies significant effusions. Review of Systems Constitutional:?No??fevers,?No??chills,?No??sweats Respiratory:?No??shortness of breath,?No??cough Cardiovascular:?No??Chest pain,?No??palpitations,?No??syncope Gastrointestinal:?Nonausea,?No??vomiting,?No??diarrhea Musculoskeletal:??No??back pain,??No??neck pain,??Positive for??left knee pain,??No??muscle pain,??No??decreased range of motion Integumentary:?No??rash,?No??pruritus,?No??abrasions Neurologic: Alert & oriented X 4 Psychiatric:?No??anxiety,?No??depression Physical Exam Vitals & Measurements HR:??78??(Peripheral)?? BP:??118/76?? SpO2:??96%?? HT:??162.56??cm?? WT:??65.77??kg?? BMI:??24.89?? Pain Score:??2?? BSA:??1.72?? The patient is alert and oriented x3. ??Pleasant and cooperative. ??Well-dressed and well-groomed.?? Appears stated age and is well-nourished and well- developed.?? Examination of the left knee is without deformity. ??Skin is intact. ??There is no erythema or warmth. ??No signs or symptoms of infection.?? Very small effusion. ??There is??medial and lateral joint line point tenderness. ??No point tenderness about the patellar or quad tendons.?? Extension and flexion are full with snapping noted. ??Varus and valgus stress testing are with solid endpoint. ??Valgus stress testing is with pain.?? Lance's and anterior drawer are negative.?? Jia's is positive. ??Calf compartment is soft and n ontender. ??The??left lower extremity is neurovascularly intact distally. Procedure Risks, benefits and alternatives to this injection are discussed with the patient, verbal consent is obtained. ??Under standard, sterile technique, the anterolateral injection site of the??left knee??is meticulously prepped with ChloraPrep x3. ??Then 40 mg of Kenalog combined with 1% lidocaine plain is injected without difficulty.?? The patient tolerated the injection very well and a dry, sterilebandage is applied. ??Postinjection instructions are provided.? Assessment/Plan 1.??Primary osteoarthritis of left knee??M17.12 Bill is a very pleasant 67-year-old man who has been struggling with worsening left knee pain over the past several months. ??He has not responded to therapy, anti-inflammatories, there was some concern that he could be dealing with gout versus Lyme. ??However I do not feel this is the case.?? He does not have significant effusion. ??His x-rays show osteoarthritis which I feel is the explanation for his??pain.?? This is discussed at length with the patient and his . ??We were able to reviewhis x-rays together. ??He is provided with patient education materials regarding??osteoarthritis. ??We discussed treatment including prescription anti-inflammatory,??cortisone injection, hyaluronic acid, knee replacement.?? At this point he would like to start with a cortisone injection which I am happy to do for him today.?? If he does not respond to this or if they become less effective over time, we could consider hyaluronic acid injections.?? He may continue with all supportive care. ??I will plan on seeing him back on an as-needed basis. ??He is in agreement with the above plan and is encouraged to contact the office??at anytime with questions or concerns. ??I spent 30 minutes in reviewing the record, seeing the patient and documenting in the medical record. Ordered: Kenalog-40, 40 mg, Intra-articular, Once, First Dose: 04/28/23 11:19:00 EDT, Stop Date: 04/28/23 11:19:00 EDT, Physician Stop, Routine ?? Follow Up Instructions With When Contact Information Return to this practice Only if needed Additional Instructions: Problem List/Past Medical History Ongoing No qualifying data Historical No qualifying data Procedure/Surgical History ???History of hernia repair Medications ibuprofen, 400 mg, Oral, every 6 hr, PRN Kenalog-40, 40 mg, Intra-articular, Once Allergies No active allergies Social History Electronic Cigarette/Vaping Electronic Cigarette Use: Never. Tobacco Never tobacco user Tobacco Use:. Diagnostic Results Diagnostic Study Interpretation: X-rays of the left knee from March 09, 2023 at [facility] have been pushed to the [facility] system and are personally reviewed.?? There is moderate narrowing of the medial femorotibial and patellofemoral joint spaces with mild spurring noted.?? No acute fracture or dislocation. Electronically Signed on 04/28/23 11:20 AM Karen Ch APRN, Patient Care team information Care Team Personnel Name: Fransisco Morales Position: No Access Member Role: Primary Care Physician Address: Address: [address] [place] [address] Care Team Related Persons Name: TAL[place] Address: Home [address] [place] [id number] [place] [address]
--- NOTE | 2023-06-10 09:45 | RT.EKG_ITS ---
APPROVED REPORT Exam: Resting ECG Reason for Exam: dizzy Patient Location: E HR:74 bpm ECG Measurements Heart Rate 74 AXIS NC 166 P 53 QRSd 94 QRS -5 QT 381 T 12 QTc 423 Conclusion Sinus rhythm...normal P axis, V-rate 60- 99 sinus rhythm, non ischemic
--- NOTE | 2023-06-10 10:00 | W.ED.GENAD ---
Discharge Plan Disposition Patient Disposition: Home Discharge Details Clinical Impression: Headache Primary Care Provider: Vikash Mclaughlin ED Provider: Kenyetta Nicole Home Meds and New Rx's Prescriptions: Continued tadalafil [Cialis] 5 mg tablet 5 mg PO DAILY PRN (Reason: urinary stream) Qty: 90 4RF tamsulosin 0.4 mg capsule 0.8 mg PO DAILY Qty: 180 4RF Rx Instructions: replaces alfuzosin cholecalciferol (vitamin D3) 25 mcg (1,000 unit) capsule 25 mcg PO DAILY saw palmetto 160 mg capsule 160 mg PO BID Rx Instructions: give with meal/snack omeprazole 20 MG capsule,delayed release(DR/EC) 20 mg PO DAILY azelastine 205.5 mcg (0.15 %) spray,non-aerosol 1 spray intranasal BID Rx Instructions: administer into each nostril bupropion HCl 150 MG tablet extended release 12 hr 150 mg PO BID naproxen sodium [Aleve] 220 MG capsule 220 - 440 mg PO PRN PRN Discharge Instructions Instructions: General Headache (ED) Additional Instructions: CT of your brain and neck are within normal limits. No evidence of blood clots in your brain or any acute abnormality. The pressure in your eye is also within normal limits. Labs are largely within normal limits as well. This could be an atypical migraine. Please take Tylenol or Ibuprofen with food every 4-6 hours as needed for pain and swelling. Please return to [facility] if you continue to have pain behind your eye or any visual problems. Follow up with primary care provider in 3-5 days. Return to ED sooner if any worsening or concerns. Increase oral fluids. Referrals: Vikash Mclaughlin MD [Primary Care Provider] - 5 days Discharge Data Discharge Date/Time-TO BE ENTERED AT DEPARTURE: 06/10/23 13:06 Medical Decision Making 67-year-old male presents to the ER with a chief complaint of lightheadedness this morning he did present to have some routine blood work drawn. He did not mention his symptoms and they sent him here for further evaluation. He also endorses headache and right eye pain. He reports that headache is localized behind his right eye. He denies any numbness tingling weakness no obvious gross motor neurodeficits noted. He reports that he did see [facility] care couple weeks ago and they said per patient report, that his eye was a little swollen. Cardiac work-up ordered including serial troponins for chief complaint of dizziness and lightheadedness, CTA brain and neck ordered for headache and right eye pain. Patient was seen by ophthalmology [facility] in [place] 2 weeks ago. Optic pressure of the right eye was measured 12.9. Intact pupillary red reflex. EOMs intact. Slightly decreased pupillary reflex in the right eye. Differential diagnosis includes but not limited to cluster headache, CVA, atypical migraine, dehydration, retinal detachment, glaucoma, CBC shows no leukocytosis, CMP largely within normal limits BUN is 20 which has been patient's baseline glucose is 130 which patient does have a history of high blood sugars. Urinalysis within normal limits. CTA brain and neck within normal limits. Patient will be referred back to PCP. And will also be referred back to [facility] care if pain continues. This text was generated using [employer]use[employer] system, please disregard any oddities of phrase or misspellings. Medical Records Medical records reviewed: Yes I reviewed the patient's medical records. Lab Data Lab results reviewed: Yes I reviewed the patient's lab results. Labs: Laboratory Tests Range/Units 06/10/23 06/10/23 06/10/23 10:00 10:00 10:08 WBC (4.4-10.8) 10^3/uL 6.34 RBC (4.36-5.78) 10^6/uL 5.59 Hgb (13.5-17.5) g/dL 16.8 Hct (40.0-50.0) % 49.2 MCV (80-95) fL 88 MCH (27.0-33.0) pg 30.1 MCHC (32.0-36.0) % 34.1 RDW (11.8-14.1) % 13.3 Plt Count (130-400) 10^3/uL 169 MPV (8.0-11.0) fL 9.4 Immature Gran % 0.3 Neutrophils % 55.5 Lymphocytes % 35.6 Monocytes % 6.9 Eosinophils % 1.4 Basophils % 0.3 Nucleated RBC % (0.0-0.3) % 0.0 Absolute Neutrophils (1.2-6.7) 10^3/uL 3.51 Absolute Lymphocytes (1.2-3.4) 10^3/uL 2.26 Absolute Monocytes (0.1-0.8) 10^3/uL 0.44 Absolute Eosinophils (0.0-0.7) 10^3/uL 0.09 Absolute Basophils (0.0-0.2) 10^3/uL 0.02 Sodium (136-145) mmol/L 143 Potassium (3.5-5.1) mmol/L 4.0 Chloride (98-107) mmol/L 107 Carbon Dioxide (21.0-32.0) mmol/L 28.6 Anion Gap (3-11) mmol/L 7.4 BUN (7-18) mg/dL 20 H Creatinine (0.70-1.30) mg/dL 1.2 Est GFR (CKD-EPI 2020) (mL/min/1.73m2) 65.46 Glucose (74-106) mg/dL 130 H Calcium (8.5-10.1) mg/dL 9.5 Magnesium (1.8-2.4) mg/dL 2.1 Total Bilirubin (0.2-1.0) mg/dL 0.6 AST (15-37) U/L 19 ALT (16-63) U/L 29 Alkaline Phosphatase (46-116) U/L 36 L Troponin I (<or=60) ng/L < 50 Total Protein (6.4-8.2) g/dL 7.2 Albumin (3.4-5.0) g/dL 4.0 Urine Color (Yellow) Yellow Urine Clarity (Clear) Clear Urine pH (5-8) 5.5 Ur Specific [place] (1.005-1.025) 1.015 Urine Protein (Negative) mg/dL Negative Urine Ketones (Negative) mg/dL Negative Urine Blood (Negative) Negative Urine Nitrite (Negative) Negative Urine Bilirubin (Negative) Negative Urine Urobilinogen (Up to 0.2) mg/dL 0.2 Ur Leukocyte Esterase (Negative) Negative Urine Glucose (Negative) mg/dL Negative HPI General Mode of arrival: ambulatory. Date/Time Provider Initiated Documentation: 06/10/23 09:42. Limitations to Documentation: no limitations. Information obtained by: patient, RN notes reviewed and old records reviewed. HPI Narrative: 67-year-old male presents to the ER with a chief complaint of lightheadedness this morning he did present to have some routine blood work drawn. He did not mention his symptoms and they sent him here for further evaluation. He also endorses headache and right eye pain. He reports that headache is localized behind his right eye. He denies any numbness tingling weakness no obvious gross motor neurodeficits noted. He reports that he did see [facility] eye care couple weeks ago and they said per patient report, that his eye was a little swollen. Related Data Home Medications Medication Instructions Recorded Confirmed bupropion HCl 150 mg tablet,12 hr 150 mg PO BID 04/20/14 06/10/23 sustained-release naproxen sodium 220 mg capsule 220 - 440 mg PO PRN PRN 11/01/15 06/10/23 (Aleve) omeprazole 20 mg capsule,delayed 20 mg PO DAILY 01/08/18 06/10/23 release azelastine 205.5 mcg (0.15 %) 1 spray intranasal BID 09/20/21 06/10/23 nasal spray cholecalciferol (vitamin D3) 25 25 mcg PO DAILY 09/24/21 06/10/23 mcg (1,000 unit) capsule saw palmetto 160 mg capsule 160 mg PO BID 09/24/21 06/10/23 tadalafil 5 mg tablet (Cialis) 5 mg PO DAILY PRN urinary stream 12/02/22 06/10/23 #90 tabs tamsulosin 0.4 mg capsule 0.8 mg PO DAILY #180 caps 12/02/22 06/10/23 Previous Rx's Medication Instructions Recorded tadalafil 5 mg tablet (Cialis) 5 mg PO DAILY PRN urinary stream 12/02/22 #90 tabs tamsulosin 0.4 mg capsule 0.8 mg PO DAILY #180 caps 12/02/22 Allergies Allergy/AdvReac Type Severity Reaction Status Date / Time No Known Allergies Allergy Unverified 06/10/23 09:40 General Stated Complaint: Dizzy/Sync ARI: 3 Review of Systems All systems reviewed & are unremarkable except as noted in HPI and below Constitutional Constitutional: Reports as per HPI and Reports headache(s) ENT Ears, Nose, Mouth, and Throat: Reports dizziness and Reports headache(s) Cardiovascular Cardiovascular: Reports lightheadedness Neurologic Neurologic: Reports dizziness and Reports headache(s) PFSH All Active Problems (Updated 06/10/23 @ 12:35 by Kenyetta Nicole NP) Headache (Acute) Increased prostate specific antigen (PSA) velocity (Acute) Right inguinal hernia (Acute) Jaw pain (Acute) Arm pain, left (Acute) Upper back pain (Acute) Penile adhesions w/skin bridging (Acute) Suprapubic discomfort (Acute 04/04/16) Medical History (Updated 06/10/23 @ 12:35 by Kenyetta Nicole NP) Actinic keratosis Arthralgia BPH w urinary obs/LUTS (04/04/16) Cough Depression GERD (gastroesophageal reflux disease) Hammer toe Osteoarthritis Primary osteoarthritis of first carpometacarpal joint of left hand Sensorineural hearing loss of both ears Surgical History (Updated 09/24/21 @ 13:49 by Livier Bailey MD) Colonoscopy - MAC (01/22/18) S/P left inguinal hernia repair S/P right inguinal hernia repair x2 Social History Smoking/Tobacco Use Status: Former Tobacco Use Smoking risk assessment performed?: Yes Alcohol Intake: current Alcohol Intake frequency: a few times a week Drug use: Never Current gender identity: male Do you feel safe at home: Yes Do you feel safe in your relationship?: Yes Exam Narrative Exam Narrative: Constitutional: Alert and oriented x3. Appears stated age. Normal body habitus. Head: Normocephalic, no trauma. Eyes: Pupils PERRL, Red reflex noted, EOM's intact. Eyelids symmetrical without lesions, discharge, or swelling. CI exam below. ENT: Bilateral TM's WNL, External ear normal to inspection, no mastoid TTP, swelling, or erythema, Nasal turbinates WNL, no nasal discharge. Normal dentition, Posterior pharynx WNL, no exudate. Chest: RRR, Normal S1, S2, distal pulses intact. Resp: Lungs clear to auscultation bilaterally, no wheezes, rales, or rhonchi. Abdomen: Soft, non-distended, Normoactive bowel sounds all 4 quads. Musculoskeletal: Normal gait, 5/5 strength to all four extremities. Skin: No suspicious rashes or lesions. Capillary refill less than 2 sec. Neurologic: Cranial nerves II-XII intact. Alert and oriented x 3. Motor: No deficits noted. Sensory: Intact bilaterally all 4 extremities. Reflexes: DTR's intact bilaterally.. Hematologic/Lymphatic: No ecchymosis, no lymphadenopathy. Eyes Visual Castillo: normal visual castillo by confrontation Periorbital: periorbital findings normal Eyelids: eyelids normal Conjunctivae: conjunctivae normal Cornea: corneas normal Pupils: PERRL EOM: EOM intact bilaterally Direct ophthalmoscopy: normal light reflex, anterior chamber normal and decreased pupillary light reflex on the right Other: Optic pressure measured 12.9 OD (Right eye) Course Vital Signs Vital signs: Vital Signs Temperature 36.8 C 06/10/23 09:37 Pulse 93 H 06/10/23 09:37 Respiratory Rate 18 06/10/23 09:37 Blood Pressure 137/82 06/10/23 09:37 Pulse Oximetry 100 06/10/23 09:37 Temperature 36.8 C 06/10/23 09:37 Temperature Source Skin 06/10/23 09:37 Pulse 93 H 06/10/23 09:37 Respiratory Rate 18 06/10/23 09:37 Respiratory Effort Normal 06/10/23 09:41 Blood Pressure 137/82 06/10/23 09:37 Blood Pressure Position Sitting 06/10/23 09:37 Pulse Oximetry 100 06/10/23 09:37 Oxygen Delivery Method Room Air 06/10/23 09:37 Oxygen Flow Rate 0 06/10/23 09:37 Pain Level 0 06/10/23 09:37
[2023-06-10 10:03] VITALS: RESP 17
[2023-06-10 10:05] LABS: Abs Immature Grans 0.02 10^3/uL (0.0-0.06); Absolute Basophil Count 0.02 10^3/uL (0.0-0.2); Absolute Eosinophil Count 0.09 10^3/uL (0.0-0.7); Absolute Lymphocyte Count 2.26 10^3/uL (1.2-3.4); Absolute Monocyte Count 0.44 10^3/uL (0.1-0.8); Absolute Neutrophil Count 3.51 10^3/uL (1.2-6.7); Basophils % 0.3; Eosinophils % 1.4; HCT 49.2 % (40.0-50.0); HGB 16.8 g/dL (13.5-17.5); Immature Grans % 0.3; Lymphocytes % 35.6; MCH 30.1 pg (27.0-33.0); MCHC 34.1 % (32.0-36.0); MCV 88 fL (80-95); MPV 9.4 fL (8.0-11.0); Monocytes % 6.9; Neutrophils % 55.5; Platelet Count 169 10^3/uL (130-400); RBC 5.59 10^6/uL (4.36-5.78); RDW 13.3 % (11.8-14.1); WBC 6.34 10^3/uL (4.4-10.8)
[2023-06-10 10:17] LABS: Bilirubin Negative (Negative); Blood Negative (Negative); Clarity Clear (Clear); Glucose Negative (Negative); Ketones Negative (Negative); Leukocyte Esterase Negative (Negative); Nitrite Negative (Negative); Specific Gravity 1.015 (1.005-1.025); Urobilinogen 0.2 mg/dL (Up to 0.2); pH 5.5 (5-8)
[2023-06-10 10:30] LABS: ALT 29 U/L (16-63); AST 19 U/L (15-37); Alkaline Phosphatase 36 U/L (46-116); Anion Gap 7.4 mmol/L (3-11); BUN 20 mg/dL (7-18); Bilirubin, Total 0.6 mg/dL (0.2-1.0); CO2 28.6 mmol/L (21.0-32.0); CREATININE 1.2 mg/dL (0.70-1.30); Calcium 9.5 mg/dL (8.5-10.1); Chloride 107 mmol/L (98-107); Estimated GFR 65.46 (mL/min/1.73m2); Glucose 130 mg/dL (74-106); Magnesium 2.1 mg/dL (1.8-2.4); Sodium 143 mmol/L (136-145); Total Protein 7.2 g/dL (6.4-8.2); Troponin I < 50 ng/L (<or=60)
[2023-06-10] MEDS: Omnipaque 350 MG/ML 100 ML BTL 85 ML IJ (11:29)
--- NOTE | 2023-06-10 11:30 | DI.CT_ITS ---
Exam(s) CT BRAIN NECK CTA EXAM: CT BRAIN NECK CTA CLINICAL HISTORY: Headache, Right eye pain. TECHNIQUE: Imaging Protocol: Axial CT angiography was performed with multi-slice acquisition and mu lti-planar and 3D reconstructions. CONTRAST MATERIAL: Intravenous: Omnipaque 350 Contrast volume:85 cc COMPARISON: CT NECK AND CHEST WITH CONTRAST from 11/13/2011 CT NECK AND CHEST WITH CONTRAST from 11/13/2011 FINDINGS: CT Head W/O and W contrast: Ventricles and Extra axial spaces: Normal in size and morphology for the patient's age. Hemorrhage: None. Cerebral parenchyma: Normal. Midline shift: None. Brainstem/Cerebellum: Normal. Calvarium: Normal. Visualized Paranasal sinuses/Mastoids: Clear. Soft Tissues: Unremarkable. Enhancement: Normal. CTA Brain W: Internal Carotid Arteries: Petrous: Normal. Cavernous: Normal. Cerebral: Normal. Middle Cerebral Arteries: Right: No aneurysm, occlusion or significant stenosis. Left: No aneurysm, occlusion or significant stenosis. Anterior Cerebral Arteries: Right: No aneurysm, occlusion or significant stenosis. Left: No aneurysm, occlusion or significant stenosis. Posterior cerebral Arteries: Right: No aneurysm, occlusion or significant stenosis. Left: No aneurysm, occlusion or significant stenosis. Vertebral Arteries: Right: No aneurysm, occlusion or significant stenosis. Left: No aneurysm, occlusion or significant stenosis. Basilar Artery: No aneurysm, occlusion or significant stenosis. CTA Neck W: Common Carotid: Right: No dissection, occlusion or significant stenosis. Left: Small amount of plaque at bulb. No dissection, occlusion or significant stenosis. External Carotid: Right: No dissection, occlusion or significant stenosis. Left: No dissection, occlusion or significant stenosis. Internal Carotid: Right: No dissection, occlusion or significant stenosis. Left: No dissection, occlusion or significant stenosis. Vertebral Artery: Right: No dissection, occlusion or significant stenosis. Left: No dissection, occlusion or significant stenosis. Lung Apices: Normal. Bones: Advanced degenerative changes in the cervical spine. No acute abnormality. Soft Tissues: Normal. IMPRESSION: 1. Normal CTA examination of the [place]. 2. Unremarkable CT Head. 3. CTA neck: Mild plaque at the left common carotid bulb, without significant stenosis. Remainder e xam within normal limits. RADIATION DOSE DELIVERED: Total DLP DATA REPOSITORY: All CT scans at this facility are submitted to the National Radiology Data Registry (NRDR) Dose Index Registry (DIR) with the [employer] (ACR). RADIATION OPTIMIZATION: All CT scans at this facility use at least one of these dose optimization te chniques: automated exposure control; mA and/or kV adjustment per patient size (includes targeted exa ms where dose is matched to clinical indication); or iterative reconstruction.
--- NOTE | 2023-06-10 12:33 | NUR.NOTE ---
Nursing Note: followup referral for pcp
[2023-06-10 13:24] LABS: Troponin I < 50 ng/L (<or=60)
== END 2023-06-10 13:06 | disposition home or self-care (01) ==
PROVIDERS: Emergency Provider Registered Nurse Emergency; PCP Family Medicine
DX: R42 Dizziness and giddiness (principal); R51.9 Headache, unspecified; Z87.891 Personal history of nicotine dependence
CPT/HCPCS: 70496; 70498; 80053; 93005; 99285; 81003; 83735; 84484; 85025; 93010; 99283; J3490

== ENCOUNTER 2023-11-24 14:11 | Outpatient (CLI) | payer MEDICARE, SELFPAY ==
--- NOTE | 2023-11-24 08:30 | DI.RAD_ITS ---
Exam(s) XR SHOULDER RT COMPLETE 2+V EXAM: XR SHOULDER RT COMPLETE 2+V CLINICAL HISTORY: RIGHT SHOULDER PAIN. TECHNIQUE: 2D digital imaging was performed of the right shoulder. Two images were obtained. Grash ey and axillary views were obtained. COMPARISON: CR XR shoulder RT complete 2+V from 08/06/2018 FINDINGS: BONES: No acute fracture is present. No bony destructive lesion is seen. JOINTS: No dislocation present. There are degenerative changes seen at the acromioclavicular joint an d mild spurring on the undersurface of the acromion. The glenohumeral joint is well maintained. SOFT TISSUE: The visualized lungs are clear. IMPRESSION: Mild degenerative changes of the shoulder as described. DATA REPOSITORY: RADIATION DOSE DELIVERED:
== END 2023-11-24 14:12 | disposition home or self-care (01) ==
LOC: DIORS 14:13
PROVIDERS: PCP Family Medicine; Referring Provider Family Medicine; Visit Provider Student in an Organized Health Care Education/Training Program
DX: S46.011A Strain of muscle(s) and tendon(s) of the rotator cuff of right shoulder, initial encounter; X58.XXXA Exposure to other specified factors, initial encounter
CPT/HCPCS: 99213; 73030

== ENCOUNTER 2023-11-30 15:47 | Outpatient (REF) | payer MEDICARE, SELFPAY ==
[2023-11-30 16:47] LABS: HCT 45.5 % (40.0-50.0); HGB 15.4 g/dL (13.5-17.5); MCH 30.6 pg (27.0-33.0); MCHC 33.8 % (32.0-36.0); MCV 90 fL (80-95); MPV 10.5 fL (8.0-11.0); Platelet Count 210 10^3/uL (130-400); RBC 5.04 10^6/uL (4.36-5.78); RDW 13.2 % (11.8-14.1); RDW-SD 43.9 fL; WBC 7.75 10^3/uL (4.4-10.8)
[2023-11-30 17:06] LABS: ALT 33 U/L (16-63); AST 20 U/L (15-37); Albumin 3.8 g/dL (3.4-5.0); Alkaline Phosphatase 40 U/L (46-116); Anion Gap 6.9 mmol/L (3-11); BUN 26 mg/dL (7-18); Bilirubin, Total 0.4 mg/dL (0.2-1.0); CO2 28.1 mmol/L (21.0-32.0); CREATININE 1.3 mg/dL (0.70-1.30); Calcium 9.4 mg/dL (8.5-10.1); Chloride 107 mmol/L (98-107); Glucose 98 mg/dL (74-106); Potassium 4.3 mmol/L (3.5-5.1); Sodium 142 mmol/L (136-145); Total Protein 6.4 g/dL (6.4-8.2)
== END 2023-11-30 15:48 | disposition home or self-care (01) ==
LOC: NCHCN 15:47
PROVIDERS: PCP Family Medicine; Visit Provider Family Medicine
DX: Z01.818 Encounter for other preprocedural examination (principal)
CPT/HCPCS: 80053; 85027

== ENCOUNTER → 2023-12-08 02:11 | Outpatient (CLI) | payer MEDICARE, SELFPAY ==
--- NOTE | 2023-12-08 06:30 | DI.MRI_ITS ---
Exam(s) MR UPPER JOINT RT WO EXAM: MR UPPER JOINT RT WO CLINICAL HISTORY: R SHOULDER PAIN,rupture prox biceps tendon,traumatic tear rtc,s46.119a, TECHNIQUE: Multiplanar multisequence MRI of the shoulder was performed. COMPARISON: CR XR SHOULDER RT COMPLETE 2+V from 11/24/2023 FINDINGS: MARROW:There is no evidence of fracture, Hill-Sachs deformity, nor ominous osseous lesions. GLENOHUMERAL JOINT: There is a small amount of increased joint fluid. Small humeral head osteophyte noted anteriorly. No loose intra-articular bodies. There are no large chondral defects. No degener ative subarticular cysts. No evidence of capsular tear. The inferior glenohumeral ligament is intact . ROTATOR CUFF MECHANISM: AC JOINT/ACROMIUM: There are moderate degenerative changes in the AC joint. Some impingement is note d at this level.. There is no evidence of os acromiale. Supraspinatus: There is a prominent full-thickness tear of the supraspinatus with retraction of the m usculotendinous junction to the mid humeral head level. There is no prominent muscle atrophy. Infraspinatus: There is tendinitis signal. The above described prominent rotator cuff tear involves the conjoined tendon region. There is no muscle atrophy. Teres Minor: Intact. No evidence of tear nor muscle atrophy. Subscapularis/anterior cuff: Tendon exhibits increased signal consistent with tendinitis anterior to the lesser tuberosity. However, there is no full-thickness tear. BICEPS TENDON: Significantly attenuated within the intertubercular groove. Intra-articular portion i s difficult to visualize. Suspect significant tearing. LABRUM: No labral tear identified. No evidence of paralabral cyst. QUADRILATERAL SPACE: No evidence of mass in the region of the axillary nerve and dorsal circumflex hu meral vessels. Visualized triceps muscle at this level appears unremarkable. IMPRESSION: 1. There is a large full thickness tear of the supraspinatus-rotator cuff tendon with retraction of t he musculotendinous junction to the mid humeral head level. There is fluid in the overlying subacrom ial bursa space. There are significant degenerative changes in the acromioclavicular joint. Impinge ment evident at this level. 2. Tendinitis signal evident in the infraspinatus and subscapularis tendons 3. Significantly attenuated biceps tendon both within the intertubercular groove and within the intra -articular compartment consistent with significant tearing of this structure. Difficult to determine if there is a very thin remnant of the biceps tendon within the intertubercular groove or just stran ding. Nevertheless, there is significant attenuated substance of the biceps tendon both within the g roove and within the intra-articular compartment 4. There is no evidence of labral tear. DATA REPOSITORY:
== END ==
PROVIDERS: PCP Family Medicine; Visit Provider Student in an Organized Health Care Education/Training Program
DX: S46.011A Strain of muscle(s) and tendon(s) of the rotator cuff of right shoulder, initial encounter (principal); X58.XXXA Exposure to other specified factors, initial encounter
CPT/HCPCS: 99213; 73221

== ENCOUNTER 2023-12-08 08:59 | Outpatient (CLI) | payer MEDICARE, SELFPAY ==
[2023-12-08 18:52] LABS: PSA, Diagnostic 2.5 ng/mL (<=6.5)
== END 2023-12-08 09:00 | disposition home or self-care (01) ==
LOC: LBO 09:00
PROVIDERS: PCP Family Medicine; Visit Provider Urology
DX: R97.20 Elevated prostate specific antigen [PSA] (principal)
CPT/HCPCS: 36415; 99213; 73221; 84153

== ENCOUNTER → 2023-12-15 10:31 | Outpatient (BNVA) | payer MEDICARE, SELFPAY | PROVIDERS: PCP Family Medicine; Referring Provider Family Medicine; Visit Provider Student in an Organized Health Care Education/Training Program | DX: S46.011A Strain of muscle(s) and tendon(s) of the rotator cuff of right shoulder, initial encounter (principal); X58.XXXA Exposure to other specified factors, initial encounter | CPT/HCPCS: 99214 ==

== ENCOUNTER 2023-12-18 06:13 | Day surgery (SDC) | payer MEDICARE, SELFPAY ==
[2023-12-18] VITALS (10 sets, daily range): BP systolic 91–130; BP diastolic 57–81; PULSE 73–99; RESP 12–16; TEMP 36.3–36.9; O2SAT 94–99; BMI 25.4
[2023-12-18] MEDS: Lactated Ringers 1,000 ML 30 ML IV (06:50)
--- NOTE | 2023-12-18 07:22 | ANES.PREOP_ITS ---
General Info Date of Service Date Performed: 12/18/23 Height: 5 ft 4 in Weight: 67.2 kg Body Mass Index (BMI): 25.4 Surgical Procedure: Operation Date: 12/18/23 07:40 Proposed Procedure Side Surgeon p Shoulder Rotator Cuff Arthroscopic w/Extensive Debridement, Subacromial Decompression Right Gonzalez Márquez MD Meds Allergies and Home Medications Allergies Allergy/AdvReac Type Severity Reaction Status Date / Time No Known Allergies Allergy Unverified 12/18/23 06:47 Home Medication Medication Instructions Recorded bupropion HCl 150 mg tablet,12 hr 150 mg PO BID 04/20/14 sustained-release omeprazole 20 mg capsule,delayed 20 mg PO DAILY 01/08/18 release cholecalciferol (vitamin D3) 25 25 mcg PO DAILY 09/24/21 mcg (1,000 unit) capsule tamsulosin 0.4 mg capsule 0.8 mg (2 x 0.4 mg) PO DAILY #180 12/08/23 caps saw palmetto 160 mg capsule 160 mg PO BID 12/15/23 Current Visit Medications: Current Medications Generic Name Dose Route Start Last Admin Trade Name Freq PRN Reason Stop Dose Admin Droperidol 0.625 mg 12/18/23 06:47 Droperidol 5 Mg/2 Ml Vial IVP 01/17/24 06:46 DIRECTED PRN Nausea Ephedrine Sulfate 0 mg 12/18/23 06:47 Ephedrine 25 Mg/5 Ml Syringe IVP 01/17/24 06:46 DIRECTED PRN Fentanyl 0 mcg 12/18/23 06:47 Fentanyl 100 Mcg/2 Ml Vial IVP 01/17/24 06:46 DIRECTED PRN Hydromorphone HCl 0 mg 12/18/23 06:47 Hydromorphone 2 Mg/Ml Syr IVP 01/17/24 06:46 DIRECTED PRN Ringer's Solution 1,000 mls @ 30 mls/hr 12/18/23 06:00 12/18/23 06:50 IV 12/18/23 23:59 30 mls/hr INFUSION VIVI Administration Cefazolin Sodium/Dextrose 2 gm in 50 mls @ 100 mls/hr 12/18/23 06:00 Ancef Duplex IVPB 12/18/23 23:59 PREOP VIVI IV Miscellaneous Supplies 1 each 12/18/23 06:00 Iv Access IV 12/18/23 23:59 DIRECTED VIVI Naloxone HCl 0 mg 12/18/23 06:47 Naloxone 0.4 Mg/Ml Vial IVP 01/17/24 06:46 PRN PRN Sodium Chloride 0 ml 12/18/23 06:00 Normal Saline Flush 10 Ml Syr IV 12/18/23 23:59 PRN PRN Sodium Chloride 0 ml 12/18/23 06:00 Normal Saline 10 Ml Vial IJ 12/18/23 23:59 DIRECTED PRN Sterile Water 0 ml 12/18/23 06:00 Water,Injection,Sterile 10 Ml Vial IJ 12/18/23 23:59 DIRECTED PRN PFSH Active Problems Active Problems: Problem Status Onset Code Rupture of proximal biceps tendon S46.119A Traumatic tear of right rotator cuff ~08/2023 S46.011A Increased prostate specific antigen (PSA) velocity R97.20 Right inguinal hernia K40.90 Jaw pain R68.84 Arm pain, left M79.602 Upper back pain M54.9 Penile adhesions w/skin bridging N48.89 Suprapubic discomfort 04/04/16 R10.2 Medical History Medical History Actinic keratosis Arthralgia Sensorineural hearing loss of both ears BPH w urinary obs/LUTS (04/04/16) GERD (gastroesophageal reflux disease) Hammer toe Osteoarthritis Depression Cough Primary osteoarthritis of first carpometacarpal joint of left hand Surgical History Surgical History S/P left inguinal hernia repair S/P right inguinal hernia repair x2 Colonoscopy - MAC (01/22/18) Tobacco Smoking/Tobacco Use Status: Former Tobacco Use Alcohol Alcohol Intake: current Alcohol intake frequency: a few times a week Substance Use Substance use: Never Substance use type: does not use Vital Signs and Lab Results Vital Signs Most Recent Vital Signs in EMR: Most Recent Vital Signs Temp Pulse Resp BP Pulse Ox 36.7 C 96 H 16 113/75 97 12/18/23 06:42 12/18/23 06:42 12/18/23 06:42 12/18/23 06:42 12/18/23 06:42 Lab Results Blood Type / Crossmatch: No Data to Display Complete Blood Count: White Blood Count 7.75 10^3/uL (4.4-10.8) 11/30/23 08:45 Red Blood Count 5.04 10^6/uL (4.36-5.78) 11/30/23 08:45 Hemoglobin 15.4 g/dL (13.5-17.5) 11/30/23 08:45 Hematocrit 45.5 % (40.0-50.0) 11/30/23 08:45 Platelet Count 210 10^3/uL (130-400) 11/30/23 08:45 Complete Metabolic Panel: Sodium 142 mmol/L (136-145) 11/30/23 08:45 Potassium 4.3 mmol/L (3.5-5.1) 11/30/23 08:45 Chloride 107 mmol/L (98-107) 11/30/23 08:45 Carbon Dioxide 28.1 mmol/L (21.0-32.0) 11/30/23 08:45 BUN 26 mg/dL (7-18) H 11/30/23 08:45 Creatinine 1.3 mg/dL (0.70-1.30) 11/30/23 08:45 Est GFR (CKD-EPI 2020) 59.10 (mL/min/1.73m2) 11/30/23 08:45 Calcium 9.4 mg/dL (8.5-10.1) 11/30/23 08:45 Albumin 3.8 g/dL (3.4-5.0) 11/30/23 08:45 Glucose 98 mg/dL (74-106) 11/30/23 08:45 Liver Function Panel: Alanine Aminotransferase (ALT/SGPT) 33 U/L (16-63) 11/30/23 08: 45 Aspartate Amino Transf (AST/SGOT) 20 U/L (15-37) 11/30/23 08:45 Coagulation Panel: No Data to Display Cardiac Panel: No Data to Display Arterial Blood Gas: No Data to Display Venous Blood Gas: No Data to Display Pancreas Panel: No Data to Display Thyroid Panel: No Data to Display Infectious Disease: No Data to Display Blood Cultures: No Data to Display Toxicology Panel: No Data to Display Anesthesia Assessment and Plan Anesthesia History Personal History: No History of Anesthesia Complications Family History: No Family History of Anesthesia Complications Exercise Tolerance Exercise Tolerance: Metabolic Equivalents>4 Pertinent Negatives Pertinent Negatives: No Symptoms of GERD Cardiac & Pulmonary Exam Cardiac Exam: Normal S1/S2 Heart Sounds Pulmonary Exam: Clear Bilateral Breath Sounds Implantable Cardiac Device Does patient have a Pacemaker or an ICD?: No Airway Exam Known Difficult Airway: No Mallampati Class: 2 Mouth Opening: Normal (> 3cm) Thyromental Distance: Greater than 3 cm Neck Range of Motion: Full ROM Neck Circumference: Normal Teeth Condition: Normal Dentition ASA Classification ASA Score: ASA 2 Emergency Case?: No NPO Status NPO Status: NPO Clears >2 hours, Solids >8 hours Anesthesia Plan Resuscitation Status: Full Code Anesthesia Technique: General Anesthesia Airway Planned: Endotracheal Tube Pain Management: Surgeon and patient request nerve block Monitors Used: Standard Monitors
--- NOTE | 2023-12-18 07:22 | W.PM.DSUDISC ---
Date of service: 12/18/23 Time of Service: 11:00 Discharge Plan Disposition Patient Disposition: Home Condition: Stable Discharge Details Attending Provider: Gonzalez Márquez Primary Care Provider: Vikash Mclaughlin Home Meds and New Rx's Prescriptions: New naproxen 250 mg tablet 250 - 500 mg PO BID PRNQty: 40 0RF Rx Instructions: take with a meal oxycodone 5 mg tablet 5 - 10 mg PO Q4H MDD 30 mg PRN (Reason: moderate to severe pain) Qty: 18 0RF Continued tamsulosin 0.4 mg capsule 0.8 mg PO DAILY Qty: 180 4RF Rx Instructions: replaces alfuzosin cholecalciferol (vitamin D3) 25 mcg (1,000 unit) capsule 25 mcg PO DAILY saw palmetto 160 mg capsule 160 mg PO BID Rx Instructions: give with meal/snack omeprazole 20 MG capsule,delayed release(DR/EC) 20 mg PO DAILY bupropion HCl 150 MG tablet extended release 12 hr 150 mg PO BID Discharge Instructions Additional Instructions: Surgery: Right shoulder arthroscopy with large rotator cuff repair (subscapularis and supraspinatus), extensive debridement, and subacromial decompression. Activity: For 6 weeks, you should keep your arm at your side in a neutral position at all times except for physical therapy. Do not try to lift or raise your arm using your own muscles. You should use the sling whenever you are out of the house. You may have to adjust the abduction pillow or remove it for comfort. At home it is best to remove the sling and rest the arm on a pillow at your side or support the operative side with your other hand. You may allow the arm to dangle at your side. A physical therapy prescription will be sent electronically to begin in about 3 weeks. CONSERVATIVE protocol. Prescriptions: Naproxen 250 mg take 1-2 every 12 hours with a meal as needed for moderate pain (do not use at same time as ibuprofen) Oxycodone 5 mg take 1-2 every 4-6 hours as needed for severe pain You may use [id number] Tylenol (acetaminophen) as needed for mild pain. These pain medications may be taken all at once or in different combinations as needed. Also, recommend Colace (docusate) as a stool softener as surgery and pain medicine cause constipation. You may try [id number]-gsn-rtyucol diphenhydramine (Benadryl) 25-50 mg nightly as a sleep aid Dressings: Remove shoulder bandage after 3 days. Leave the sticky Steri-Strips in place until they fall off or remove them after you shower. Cover the incisions with Band-Aids or leave them open to air. You may shower after 5 days. Follow-up: 10-[address] Márquez You may take off the leg compression stockings this evening at home. You may also leave them on a few days longer if you have a history of leg swelling or edema. Let us know right away if you develop any redness, drainage, fevers, chest pain, or trouble breathing. Do not drink alcohol or drive for at least 24 hours after anesthesia. Please call the office during business hours with any questions or concerns. Stand Alone Forms: Anesthesia Discharge Inst., Mesha.Nerve Block Instructions, José Saez (DSU) Referrals: Gonzalez Márquez MD [ [facility] STAFF PHYSICIAN] - 12/30/23 10:00 am Equipment/Supplies: Sling Discharge Orders Discharge Orders: Discharge Order (Routine); Ordered 12/18/23 Ordered By: Gonzalez Márquez DS: Diagnosis Discharge Diagnosis (1) Traumatic tear of right rotator cuff: Status: Acute
--- NOTE | 2023-12-18 07:26 | ROE_ITS ---
Date of service: 12/18/23 Time of Service: 07:30 Operative Note Operative Note DATE OF PROCEDURE: 12/18/23 PRE-OP DIAGNOSIS: Right: 1. Rotator cuff tear 2. Proximal biceps rupture 3. Bursitis POST-OP DIAGNOSIS: same PROCEDURE: Right: 1. Rotator cuff repair, CPT# 84049. This involved repair of the subscapularis and supraspinatus using anchors and sutures to reattach the rotator cuff back to the footprint of the lesser and greater tuberosity. 2. Extensive debridement, CPT# 60575. This involved using arthroscopic hand instruments, power instruments, and radiofrequency instruments to debride anterior rotator interval synovitis, release [facility] anterior capsular adhesions, debride partial articular and delaminated rotator cuff tearing, resect significant biceps tendon stump remnant, debride anterior and superior labral tearing working within the glenohumeral joint anterior, superiorly, and posteriorly. 3. Subacromial decompression with partial acromioplasty, CPT# 23646. This invo lved using arthroscopic power instruments and a radiofrequency wand to complete a bursectomy and smooth the undersurface of the acromion. The assistant speech language pathologist was medically required in order to help assist in techniques above, which require positioning the arm, holding the arthroscope, and manipulating multiple instruments and sutures at the same time. This cannot be done without the help of an experienced assistant speech language pathologist. SURGEON: Gonzalez Márquez LAMINATING MACHINE TENDER: Jennifer Daly ANESTHESIA TYPE: General LMA/ETT and Primary Nerve Block Refer to Anesthesia Record ESTIMATED BLOOD LOSS: 10 PATHOLOGY: none sent COMPLICATIONS: None Patient was transported to: PACU Patient's condition: stable Implants: Arthrex: 4.75mm SwiveLocks x 5 Indications: The patient was diagnosed with the above conditions and appropriately indicated for surgical intervention. Please see complete medical record for details. Findings: Exam under anesthesia: Full range of motion, no instability Glenohumeral joint: Mild generalized chondromalacia, large remarkably long frayed and impinging biceps tendon stump remnant with the remainder of the distal long of the biceps tendon well below the bicipital groove. Full- thickness delaminated retracted supraspinatus rotator cuff tear with significant retraction anteriorly and moderate retraction posteriorly. Partial infraspinatus involvement. Upper about 50% delaminated frayed somewhat degenerative appearing subscapularis rotator cuff tearing. Subacromial space: Significant bursitis. Moderate anterior to central supraspinatus tendon remnant on the greater tuberosity. Procedure Description: In the operating room, general anesthesia was induced. Bilateral shoulders were examined. The patient was positioned in the beachchair position. All bony prominences were well-padded. Preoperative antibiotics were administered. The shoulder was prepped and draped in the usual sterile fashion. The correct patient, procedure, and side of the procedure were all verified prior to incision. Starting through the posterior portal a standard complete diagnostic arthroscopy was performed of the glenohumeral joint including inspection of the long head of the biceps, anterior and superior labrum, subscapularis tendon, supraspinatus and infraspinatus tendons, and axillary recess. The glenoid and humeral head cartilage as well as the posterior labrum were inspected from anterior superior through the full-thickness rotator cuff viewing portal. Significant findings and interventions noted above. The significant biceps tendon remnant was carefully resected and then contoured to a stable margin at the superior labrum. Synovitis and capsulitis adhesions anteriorly were carefully debrided resected. The subscapularis was debrided as well of irreparable moderate grade partial tearing and mobilized laterally. The supraspinatus remnant on the greater tuberosity was removed. The greater tuberosity bone was thoroughly prepared to optimize bone and tendon healing. The under surface layers of the supraspinatus were separately mobilized and then reduced provisionally with cuff grasper and then a similar thing done with the upper thicker majority layers. The irreparable frayed portions nonstructural debrided mildly preserving as much length as possible especially given in the tendon remnant. The subscapularis required too much tension for repair so decision was made to proceed with supraspinatus repair from far anterior to posterior first and then come back and incorporate the subscapularis as best possible without doing too much tension or causing stiffness. Starting through the posterior portal, the arthroscope was directed into the subacromial space. A lateral 50 yard line lateral portal was created. A combination of power instruments and a radiofrequency ablator were used to debride bursitis anteriorly, posteriorly, and laterally as well as expose and smooth bone spurring on the undersurface of the acromion. The coracoacromial ligament was preserved. The bursectomy was completed viewing laterally and working from posteriorly and the rotator cuff was thoroughly inspected with findings noted above. The extent of the tear was fully evaluated, rotator cuff mobilized, different layers carefully inspected, and decision was made to proceed with modified double row repair. A medial row was established with 4.75 mm SwiveLock anchors preloaded with FiberTape's. The tapes were individually passed through the different layers of the rotator cuff using the self retrieving suture passer with a or full tear all spread out to incorporate the different tissue layers as well as the large size of the tear from anterior to posterior. Suture tape FiberLink's were then placed centrally and posteriorly to add additional suture strength and incorporate the layers together. The anterior FiberTape's in the anterior Lenk were then brought to an anterior lateral anchor with moderate tension to achieve reduction given the somewhat deficient tissue tissue more anteriorly. Similarly the posterior tapes and Linq were brought to a posterior lateral anchor with excellent compression on the already reduced repair. The supraspinatus repair was stable through range of motion. The farthest posterior length incorporated the infraspinatus wrapping around nicely. Far anteriorly at about the rotator interval the subscapularis was reduced but not held against the upper margin of the lesser tuberosity that had been prepared earlier from in the joint. Working through the anterior superior portal with self retrieving scorpion was used to place 2 links through this anterior most supraspinatus and upper subscapularis, arm rotated to ensure adequate reduction without undue tension or preventing external rotation stiffness later, and this remaining part of the tear secured to an anterior SwiveLock anchor. The entire repair had good tissue and bone fixation, there was good reduction of the majority of the tissue from far anterior through the supraspinatus to far posterior. The repair was stable through range of motion and testing. The shoulder was drained of arthroscopic fluid. All portal sites were copiously irrigated. These incisions were closed using 3-0 Monocryl in a buried fashion and then covered with Mastisol, Steri-Strips, Xeroform, dry gauze, and ABDs. The dressings were covered and secured with Medipore tape. The operative extremity was placed into a sling for immobilization. The patient awoke from anesthesia without complication and was transferred to the recovery room in a stable condition.
[2023-12-18] MEDS: ceFAZolin 2 GM/50 ML BAG IVPB (07:41)
[2023-12-18] MEDS: Tranexamic Acid 1,000 MG/10 ML VIAL 1000 MG (08:15)
--- NOTE | 2023-12-18 08:27 | W.ANESNERVE ---
Nerve Block Single Injection Procedure Date and Time Date Performed: 12/18/23 Procedure Start: 07:32 Location Where Procedure Performed Procedure Location: Day Surgery Unit Reason Performed: Postoperative Analgesia Requesting Provider: Gonzalez Márquez Timeout Performed Timeout Performed: No Monitoring Used ECG, Blood Pressure, SpO2 and ETCO2 Sterility Sterility: Hand Hygiene, Surgical Cap, Surgical Mask, Sterile Gloves, Eye Protection and Chlorhexidine Sedation Given During Procedure Sedation Given (Indicate Dose Given): Versed IV Dose:: 2mg IVP Patient Mental Status Patient Mental Status: Sedate with meaningful communication Nerve Block 1st Nerve Block: Laterality: Right Block Type: Interscalene Ultrasound Image Saved?: Yes Needle / Catheter Used: 80mm SonoPlex II Local Anesthetic Bolus (Indicate Dose Given): Lidocaine used for local infiltration of skin, Injected in 3-5ml increments after negative blood aspiration, Bupivacaine 0.5% Dose:: 0.5%/10cc (50mg) and Exparel Dose:: 1.3%/10cc (133mg) Additives (Indicate Dose Given): Epinephrine to make 1:200,000 (5mcg/ml) Dose:: 100mcg/ 1:200,000 Ultrasound: Sterile probe cover and gel used Nerve Stimulator: Not Used Paresthesia: None Procedure Tolerated: No Complications and Patient tolerated well Procedure Outcome: Successful Performed By: Misha Sosa
[2023-12-18] MEDS: EPINEPHrine 10 MG/10 ML ML (12:59)
--- NOTE | 2023-12-18 13:00 | W.ANESPOSTOP ---
Postoperative Evaluation Date, Time and Location Date Performed: 12/18/23 Time Performed: 13:00 Patient Location: Day Surgery Unit Vital Signs Most Recent Imported Vital Signs: Most Recent Vital Signs Temp Pulse Resp BP Pulse Ox 36.3 C L 82 16 123/75 94 12/18/23 11:56 12/18/23 11:56 12/18/23 11:56 12/18/23 11:56 12/18/23 11:56 Pain Score Most Recent Pain Score: Most Recent Pain Score Pain Level 0 12/18/23 11:56 Assessment Mental Status: Awake (Alert & Oriented to Patient Baseline) Airway and Respiratory Function: Patent airway with normal (patient baseline) respiratory exam Cardiovascular Function: Hemodynamically Stable Hydration Status: Adequately Hydrated Nausea & Vomiting: No Nausea or Vomiting Pain: Pt. Denies Any Pain Peripheral Nerve Block: Regional nerve block not resolved at time of post operative discharge
== END 2023-12-18 12:40 | disposition home or self-care (01) ==
PROVIDERS: PCP Family Medicine; Visit Provider Student in an Organized Health Care Education/Training Program
PROC: (CPT 29827; principal; 2023-12-18 07:30)
DX: S46.011A Strain of muscle(s) and tendon(s) of the rotator cuff of right shoulder, initial encounter (principal); S46.111A Strain of muscle, fascia and tendon of long head of biceps, right arm, initial encounter; W23.0XXA Caught, crushed, jammed, or pinched between moving objects, initial encounter; W10.9XXA Fall (on) (from) unspecified stairs and steps, initial encounter; M75.51 Bursitis of right shoulder
CPT/HCPCS: 29827; 29823; 29826; 76942; C9290; J0171; J0665; J0690; J1100; J1885; J2001; J2250; J2371; J2405; J2704; J3010

== ENCOUNTER → 2023-12-30 09:47 | Outpatient (BNVA) | payer MEDICARE, SELFPAY | PROVIDERS: PCP Family Medicine; Referring Provider Family Medicine; Visit Provider Student in an Organized Health Care Education/Training Program | DX: S46.011D Strain of muscle(s) and tendon(s) of the rotator cuff of right shoulder, subsequent encounter (principal); X58.XXXD Exposure to other specified factors, subsequent encounter ==

== ENCOUNTER → 2024-01-28 13:15 | Outpatient (BNVA) | payer MEDICARE, SELFPAY | PROVIDERS: PCP Family Medicine; Referring Provider Family Medicine; Visit Provider Student in an Organized Health Care Education/Training Program | DX: M17.12 Unilateral primary osteoarthritis, left knee (principal) | CPT/HCPCS: 99213 ==

== ENCOUNTER → 2024-02-10 10:34 | Outpatient (BNVA) | payer MEDICARE, SELFPAY | PROVIDERS: PCP Family Medicine; Referring Provider Family Medicine; Visit Provider Student in an Organized Health Care Education/Training Program | DX: S46.011D Strain of muscle(s) and tendon(s) of the rotator cuff of right shoulder, subsequent encounter (principal); S46.111D Strain of muscle, fascia and tendon of long head of biceps, right arm, subsequent encounter; X58.XXXD Exposure to other specified factors, subsequent encounter ==

== ENCOUNTER 2024-03-28 05:20 | Outpatient (CLI) | payer MEDICARE, SELFPAY ==
[2024-03-28 15:14] LABS: HCT 44.6 % (40.0-50.0); HGB 15.9 g/dL (13.5-17.5); MCH 30.6 pg (27.0-33.0); MCHC 35.7 % (32.0-36.0); MCV 86 fL (80-95); MPV 9.9 fL (8.0-11.0); Platelet Count 197 10^3/uL (130-400); RDW 12.9 % (11.8-14.1); RDW-SD 40.4 fL; WBC 8.38 10^3/uL (4.4-10.8)
[2024-03-28 16:31] LABS: Anion Gap 10.1 mmol/L (3-11); BUN 25 mg/dL (7-18); CO2 25.9 mmol/L (21.0-32.0); CREATININE 1.3 mg/dL (0.70-1.30); Calcium 9.2 mg/dL (8.5-10.1); Chloride 108 mmol/L (98-107); Glucose 95 mg/dL (74-106); Potassium 4.1 mmol/L (3.5-5.1); Sodium 144 mmol/L (136-145)
== END 2024-03-28 05:21 | disposition home or self-care (01) ==
PROVIDERS: PCP Family Medicine; Visit Provider Student in an Organized Health Care Education/Training Program
DX: M25.562 Pain in left knee (principal); M17.12 Unilateral primary osteoarthritis, left knee; Z01.818 Encounter for other preprocedural examination; Z01.812 Encounter for preprocedural laboratory examination
CPT/HCPCS: 36415; 80048; 85027

== ENCOUNTER → 2024-04-06 10:42 | Outpatient (BNVA) | payer MEDICARE, SELFPAY | PROVIDERS: PCP Family Medicine; Visit Provider Student in an Organized Health Care Education/Training Program | DX: S46.011D Strain of muscle(s) and tendon(s) of the rotator cuff of right shoulder, subsequent encounter (principal); X58.XXXD Exposure to other specified factors, subsequent encounter | CPT/HCPCS: 99213 ==

== ENCOUNTER 2024-04-12 05:53 | Day surgery (SDC) | payer MEDICARE, SELFPAY ==
[2024-04-12] VITALS (15 sets, daily range): BP systolic 91–137; BP diastolic 59–86; PULSE 78–96; RESP 14–19; TEMP 36.1–36.6; O2SAT 94–97; BMI 25.9
[2024-04-12] MEDS: Celecoxib 200 MG CAP 400 MG PO (06:28)
[2024-04-12] MEDS: Acetaminophen 500 MG TAB 1000 MG PO (06:28)
[2024-04-12] MEDS: Gabapentin 300 MG CAP PO (06:28)
[2024-04-12] MEDS: Lactated Ringers 1,000 ML 80 ML IV (06:45)
--- NOTE | 2024-04-12 06:45 | ANES.PREOP_ITS ---
General Info Date of Service Date Performed: 04/12/24 Height: 5 ft 4 in Weight: 68.4 kg Body Mass Index (BMI): 25.9 Surgical Procedure: Operation Date: 04/12/24 07:40 Proposed Procedure Side Surgeon p Knee Total Arthroplasty, Cementless CR Left Kike Damon MD Meds Allergies and Home Medications Allergies Allergy/AdvReac Type Severity Reaction Status Date / Time No Known Allergies Allergy Verified 04/12/24 06:13 Home Medication Medication Instructions Recorded bupropion HCl 150 mg tablet,12 hr 150 mg PO BID 04/20/14 sustained-release omeprazole 20 mg capsule,delayed 20 mg PO DAILY 01/08/18 release cholecalciferol (vitamin D3) 25 25 mcg PO DAILY 09/24/21 mcg (1,000 unit) capsule tamsulosin 0.4 mg capsule 0.8 mg (2 x 0.4 mg) PO DAILY #180 12/08/23 caps saw palmetto 160 mg capsule 160 mg PO BID 12/15/23 Current Visit Medications: Current Medications Generic Name Dose Route Start Last Admin Trade Name Jessica PRN Reason Stop Dose Admin Acetaminophen 1,000 mg 04/12/24 06:00 04/12/24 06:28 Acetaminophen 500 Mg Tab PO 04/12/24 23:59 1,000 mg PREOP VIVI Administration Celecoxib 400 mg 04/12/24 06:00 04/12/24 06:28 Celecoxib 200 Mg Cap PO 04/12/24 23:59 400 mg PREOP VIVI Administration Gabapentin 300 mg 04/12/24 06:00 04/12/24 06:28 Gabapentin 300 Mg Cap PO 04/12/24 23:59 300 mg PREOP VIVI Administration Ringer's Solution 1,000 mls @ 80 mls/hr 04/12/24 06:00 IV 04/12/24 23:59 INFUSION VIVI Cefazolin Sodium/Dextrose 2 gm in 50 mls @ 100 mls/hr 04/12/24 06:00 Ancef Duplex IVPB 04/12/24 23:59 PREOP VIVI Tranexamic Acid/Sodium Chloride 1,000 mg in 100 mls @ 600 mls/hr 04/12/24 06:00 IVPB 04/12/24 23:59 PREOP VIVI IV Miscellaneous Supplies 1 each 04/12/24 06:00 Iv Access IV 05/21/24 23:59 DIRECTED VIVI Sodium Chloride 0 ml 04/12/24 06:00 Normal Saline Flush 10 Ml Syr IV 04/12/24 23:59 PRN PRN Sodium Chloride 0 ml 04/12/24 06:00 Normal Saline 10 Ml Vial IJ 04/12/24 23:59 DIRECTED PRN Sterile Water 0 ml 04/12/24 06:00 Water,Injection,Sterile 10 Ml Vial IJ 04/12/24 23:59 DIRECTED PRN PFSH Active Problems Active Problems: Problem Status Onset Code Osteoarthritis of left knee M17.12 Rupture of proximal biceps tendon S46.119A Traumatic tear of right rotator cuff ~08/2023 S46.011A Increased prostate specific antigen (PSA) velocity R97.20 Right inguinal hernia K40.90 Jaw pain R68.84 Arm pain, left M79.602 Upper back pain M54.9 Penile adhesions w/skin bridging N48.89 Suprapubic discomfort 04/04/16 R10.2 Medical History Medical History Actinic keratosis Arthralgia Sensorineural hearing loss of both ears BPH w urinary obs/LUTS (04/04/16) GERD (gastroesophageal reflux disease) Hammer toe Osteoarthritis Depression Cough Primary osteoarthritis of first carpometacarpal joint of left hand Medical History Comments:: pt. states it take a long time to wake Surgical History Surgical History Status post rotator cuff repair S/P left inguinal hernia repair S/P right inguinal hernia repair x2 Colonoscopy - MAC (01/22/18) Tobacco Smoking/Tobacco Use Status: Former Tobacco Use Alcohol Alcohol Intake: current Alcohol intake frequency: a few times a week Alcohol type: wine Substance Use Substance use: Never Substance use type: does not use Details: alcohol: t-1, small amount Vital Signs and Lab Results Vital Signs Most Recent Vital Signs in EMR: Most Recent Vital Signs Temp Pulse Resp BP Pulse Ox 36.4 C L 83 18 137/86 97 04/12/24 06:19 04/12/24 06:19 04/12/24 06:19 04/12/24 06:19 04/12/24 06:19 Lab Results Blood Type / Crossmatch: No Data to Display Complete Blood Count: 2 White Blood Count 8.38 10^3/uL (4.4-10.8) 03/28/24 15:00 Red Blood Count 5.20 10^6/uL (4.36-5.78) 03/28/24 15:00 Hemoglobin 15.9 g/dL (13.5-17.5) 03/28/24 15:00 Hematocrit 44.6 % (40.0-50.0) 03/28/24 15:00 Platelet Count 197 10^3/uL (130-400) 03/28/24 15:00 Complete Metabolic Panel: Sodium 144 mmol/L (136-145) 03/28/24 15:00 Potassium 4.1 mmol/L (3.5-5.1) 03/28/24 15:00 Chloride 108 mmol/L (98-107) H 03/28/24 15:00 Carbon Dioxide 25.9 mmol/L (21.0-32.0) 03/28/24 15:00 BUN 25 mg/dL (7-18) H 03/28/24 15:00 Creatinine 1.3 mg/dL (0.70-1.30) 03/28/24 15:00 Est GFR (CKD-EPI 2020) 59.10 (mL/min/1.73m2) 03/28/24 15:00 Calcium 9.2 mg/dL (8.5-10.1) 03/28/24 15:00 Glucose 95 mg/dL (74-106) 03/28/24 15:00 Liver Function Panel: No Data to Display Coagulation Panel: No Data to Display Cardiac Panel: No Data to Display Arterial Blood Gas: No Data to Display Venous Blood Gas: No Data to Display Pancreas Panel: No Data to Display Thyroid Panel: No Data to Display Infectious Disease: No Data to Display Blood Cultures: No Data to Display Toxicology Panel: No Data to Display Imaging and Studies Imaging and Studies Study information below may be from another EMR and interpreted by another provider. Please see original notes in EMR for more complete details. EKG Summary: EKG PATIENT NAME: Roland Reed UNIT #: [id number] ORDERING PROVIDER: Kenyetta Nicole NP PRIMARY CARE PROVIDER: SINDY CONWAY MD DATE/TIME OF SERVICE: 06/10/2349 : 1955 PERFORMING LOCATION: ER APPROVED REPORT Exam: Resting ECG Reason for Exam: dizzy Patient Location: E HR:74 bpm ECG Measurements Heart Rate 74 AXIS MI 166 P 53 QRSd 94 QRS -5 QT 381 T12 QTc 423 Conclusion Sinus rhythm...normal P axis, V-rate 60- 99 sinus rhythm, non ischemic <Electronically signed by Rei Nair M.D. in [place]> E-Sign Date: 06/11/23 E-Sign Time: 1052 ADDENDUM APPROVED REPORT Exam: Resting ECG Reason for Exam: dizzy Patient Location: E HR:74 bpm ECG Measurements Heart Rate 74 AXIS MI 166 P 53 QRSd 94 QRS -5 QT 381 T12 QTc 423 Conclusion Sinus rhythm...normal P axis, V-rate 60- 99 sinus rhythm, non ischemic I have reviewed and interpreted ECG and agree with software generated interpretation. Electronically signed by: <Electronically signed by Amanda Adame M.D. in [place]> 06/11/23 1113 Cosigned by: Anesthesia Assessment and Plan Anesthesia History Personal History: No History of Anesthesia Complications Family History: No Family History of Anesthesia Complications Exercise Tolerance Exercise Tolerance: Metabolic Equivalents>4 Pertinent Negatives Pertinent Negatives: No Symptoms of GERD, No Major Cardiovascular Symptoms or Complaints, No Major Pulmonary Symptoms or Complaints and No History of CVA/TIA Cardiac & Pulmonary Exam Cardiac Exam: Normal S1/S2 Heart Sounds Pulmonary Exam: Clear Bilateral Breath Sounds Implantable Cardiac Device Does patient have a Pacemaker or an ICD?: No Airway Exam Known Difficult Airway: No Mallampati Class: 2 Mouth Opening: Normal (> 3cm) Thyromental Distance: Greater than 3 cm Neck Range of Motion: Full ROM Neck Circumference: Normal Teeth Condition: Normal Dentition ASA Classification ASA Score: ASA 2 Emergency Case?: No NPO Status NPO Status: NPO Clears >2 hours, Solids >8 hours Anesthesia Plan Resuscitation Status: Full Code Anesthesia Technique: Spinal Anesthesia Airway Planned: Natural Airway Pain Management: Surgeon and patient request nerve block Monitors Used: Standard Monitors
--- NOTE | 2024-04-12 07:05 | W.PM.DSUDISC ---
Date of service: 04/12/24 Time of Service: 07:06 Discharge Plan Disposition Patient Disposition: Home Condition: Good Discharge Details Reason For Visit: L TKR Attending Provider: Kike Damon Primary Care Provider: Vikash Mclaughlin Home Meds and New Rx's Prescriptions: New celecoxib 200 mg capsule 200 mg PO BID Qty: 60 0RF aspirin 81 mg tablet,delayed release (DR/EC) 81 mg PO BID Qty: 60 0RF acetaminophen 500 mg tablet 1,000 mg PO TID Qty: 90 3RF dexamethasone 4 mg tablet 4 mg PO DAILY Qty: 2 0RF gabapentin 300 mg capsule 300 mg PO QHS Qty: 14 0RF oxycodone 5 mg tablet 5 mg PO Q4H MDD 6 tabs PRN (Reason: pain) Qty: 20 0RF Continued tamsulosin 0.4 mg capsule 0.8 mg PO DAILY Qty: 180 4RF Rx Instructions: replaces alfuzosin cholecalciferol (vitamin D3) 25 mcg (1,000 unit) capsule 25 mcg PO DAILY saw palmetto 160 mg capsule 160 mg PO BID Rx Instructions: give with meal/snack omeprazole 20 MG capsule,delayed release(DR/EC) 20 mg PO DAILY Patient Comments: takes as needed bupropion HCl 150 MG tablet extended release 12 hr 150 mg PO BID Discharge Instructions Additional Instructions: Total Knee Discharge Instructions Activity: The most important activity is to walk and to work on gentle motion (both flexion and extension). You should try to take short walks a few times a day. It is important that when resting you work on keeping the knee straight. Avoid putting a pillow behind the knee as this will encourage flexion. Work on range of motion exercises as provided by Physical Therapy. - Start outpatient physical therapy within 2 weeks. - You should wear the ISSAC hose on both legs for 2 weeks. You may remove these at night. You may also use any compression sock in place of the ISSAC hose. - Utilize [employer] to review exercises, see videos on exercises and obtain basic information pertaining to your surgery and your recovery. Dressing: Remove the Luis wrap by 2 days after your surgery and put on the ISSAC stocking given to you from the hospital. Keep the surgical dressing (underneath the LUIS wrap) in place for at least one week. After the first week it may be removed and replaced with light gauze and tape or nothing. The wound and dressing may get wet after 3 days but avoid soaking the dressing or otherwise it will need to be changed. Many people prefer covering the dressing with cling wrap (saran wrap) to minimize it from getting soaked. If it gets wet, just pat dry. If it starts to peel off then it will need to be changed. Medications: - You should take Tylenol and anti-inflammatory Celebrex as your primary pain control medications. If the Celebrex is too expensive or not covered, please call the office for another alternative (Advil/Ibuprofen or Naproxen/Aleve) - You have been prescribed a stronger pain medication Oxycodone for breakthrough pain, take as needed as prescribed. - You will continue your omeprazole to help reduce stomach acid and reflux. - You have been prescribed Gabapentin to take at night for restlessness and nerve pain. - You will be taking Aspirin 81mg twice a day for DVT prevention unless instructed otherwise. - You have also been prescribed Decadron to take to control post-operative nausea and pain. You will start this tomorrow. - If you have constipation you should take Colace or Miralax (both [id number]). It takes most people 3-4 days to have a bowel movement. Follow-up: 2 weeks If you have any acute concerns or questions, please do not hesitate to contact the office at [phone]. You may contact Dr. Damon with any questions after hours through the hospital at [phone] or on his cell phone at [phone]. Referrals: Kike Damon MD [ [facility] STAFF PHYSICIAN] - Equipment/Supplies: Walker Activity:: Activity as Tolerated Shower/Bathe:: 72 hours Diet:: As Tolerated Discharge Orders Discharge Orders: Discharge Order (Routine); Ordered 04/12/24 Ordered By: Kike Damon DS: Diagnosis Discharge Diagnosis (1) Osteoarthritis of left knee: Status: Acute
--- NOTE | 2024-04-12 07:25 | W.ANESNERVE ---
Nerve Block Single Injection Procedure Date and Time Date Performed: 04/12/24 Procedure Start: 07:14 Location Where Procedure Performed Procedure Location: Day Surgery Unit Reason Performed: Postoperative Analgesia Requesting Provider: Kike Damon Timeout Performed Timeout Performed: Yes Monitoring Used ECG, Blood Pressure and SpO2 Sterility Sterility: Hand Hygiene, Surgical Cap, Surgical Mask, Sterile Gloves and Chlorhexidine Sedation Given During Procedure Sedation Given (Indicate Dose Given): No Sedation given Patient Mental Status Patient Mental Status: Awake Nerve Block 1st Nerve Block: Laterality: Left Block Type: Adductor Canal Ultrasound Image Saved?: Yes Needle / Catheter Used: 100mm SonoPlex II Local Anesthetic Bolus (Indicate Dose Given): Lidocaine used for local infiltration of skin, Injected in 3-5ml increments after negative blood aspiration and Bupivacaine 0.25% Dose:: 15 ml Additives (Indicate Dose Given): Normal Saline (hydrodissection) Ultrasound: Sterile probe cover and gel used Nerve Stimulator: Supplement to Ultrasound use and No twitch or parasthesia noted < 0.5 mA Paresthesia: None Procedure Tolerated: No Complications and Patient tolerated well Procedure Outcome: Successful Performed By: Aris Greene
[2024-04-12] MEDS: ceFAZolin 2 GM/50 ML BAG IVPB (07:52)
[2024-04-12] MEDS: TRANEXAMIC ACID/SOD. CHL. 1,000 MG/100 ML BAG 600 MG IVPB (07:59)
[2024-04-12] MEDS: fentaNYL 100 MCG/2 ML VIAL IVP ×2 (09:40→09:45)
--- NOTE | 2024-04-12 10:12 | W.PM.OP ---
Date of service: 04/12/24 Time of Service: 07:45 Operative Note Operative Note DATE OF PROCEDURE: 04/12/24 PRE-OP DIAGNOSIS: Left Knee Osteoarthritis POST-OP DIAGNOSIS: same PROCEDURE: Left Total Knee Replacement SURGEON: Kike Damon VISCOSE DEPARTMENT WORKER: Sangeeta Wong ANESTHESIA TYPE: Spinal Refer to Anesthesia Record ESTIMATED BLOOD LOSS: 120 PATHOLOGY: none sent TOURNIQUET TIME: 0 COMPLICATIONS: None Patient was transported to: PACU Patient's condition: stable Implants: 1. Depuy Attune Cementless Cruciate Retaining Femoral Component, Size 6 2. Depuy Attune Cementless Fixed Bearing Tibial Component, Size 5 3. Depuy Attune 6x8 CR/FB Poly 4. Depuy Attune Patellar Component, Size 38 Indications: I have seen Ronny in clinic for symptoms of knee arthritis, confirmed with radiographic findings. He has exhausted nonoperative methods and was having significant limitations in daily function and desired better function and less pain. I discussed the technical details of a knee replacement. I explained the risks of the procedure to include, but not limited to, bleeding, infection, pain, stiffness, fracture, damage to nerves and vessels, damage to muscles and tendons, loosening, need for repeat procedure, blood clot and cardiopulmonary demise. Despite these risks, Ronny elected to proceed. Findings: There was significant signs of arthritis throughout the medial knee with central chondromalacia of the patella. Procedure Description: Ronny was greeted in the preoperative holding area where the correct side was identified and marked. The consent was reviewed with the patient and signed. The history and physical was updated. All questions were answered. Preoperative medications were administered: Acetaminophen 1000mg, Celebrex 400mg, and Gabapentin 300mg. An adductor canal block was then administered by the anesthesia team in the DSU. Ronny was taken back to the operating room. A spinal anesthestic was then administered. The patient was placed into the supine position on the operating room table. A nonsterile tourniquet was placed high onto the leg but only used for cementing. Posts were placed for positioning during the procedure. All bony prominences were well padded. Prophylactic antibiotics in the form of Cefazolin were administered. 1g of Tranxemic Acid was given intravenously within 30 minutes of incision. The left leg was then prepped with Chloraprep and draped in a standard fashion with impervious stockinette. A second prep with Chloraprep was performed prior to application of Iodine impregnated skin protection. A timeout to confirm correct identity, side and site, procedure, allergies, anesthesia, and medical concerns was performed. With the knee in some flexion, a midline incision was made overlying the knee. Full thickness skin flaps were raised once the extensor mechanism was encountered. These were raised medially and laterally. Any bleeding was controlled with electrocautery. Once the extensor mechanism was fully exposed, a medial parapatellar arthrotomy was performed in a flexed position. All bleeding from the arthrotomy and the geniculate arteries was coagulated. A medial subperiosteal peel was performed with electrocautery to the midcoronal plane. The fat pad was removed while keeping the patellar tendon protected. The anterior distal femur synovium was removed for later visualization. The ACL and PCL were resected and the anterior horn of the lateral meniscus was transected. The knee was then flexed with the patella everted. Using a step drill, and based on preoperative templating, the femoral canal was entered. This was done with a step drill without any difficulty. The intramedullary distal femoral cut guide was inserted, set to a 5 degree valgus cut and 9mm cut thickness. The distal femoral cut guide was then held in position and pinned. With the soft tissues protected, the distal cut was performed. This was passed over a few times to ensure a planar cut. I then turned attention to the tibia. The extramedullary guide was placed onto the leg. The distal aspect was slid medial to adjust for position of center of ankle and stay in line with shaft of the tibia. Approximately 3-5 degrees of posterior slope was kept in the proximal cutting guide. The center of the guide was aligned with the PCL. The stylus was used to assess cut thickness. The medial side, most involved side, was set for a 4mm cut. This was then held in position and pinned into place with 2 additional pins and a cross pin for stability. The medial and lateral collateral ligaments were protected and the cut was performed. With this completed, it was assessed and noted to be of appropriate dimensions. The guide was removed. A spacer block was inserted and the knee was brought into extension. The 7mm spacer block provided full extension, without hyperextension and with stability of both the medial and lateral collateral ligaments was assessed. The pins from the femur and the tibia were then removed. The distal femur was then sized. The anterior stylus was placed onto the lateral ridge of the anterior femur. This indicated a size 6 femur. The external rotation of the guide was adjusted to 3 degrees to match the epicondylar axis, perpendicular to Valentines?s line. The 4-in-1 cutting guide was the placed. The posterior medial femur cut was evaluated and appeared of good thickness. The spacer block was inserted underneath the cutting guide and stability was confirmed in 90 degrees of flexion. An barbara wing was used to confirm appropriate position of the anterior cut to avoid notching. This cutting guide was ensured to be flush on the cut surface and then pinned into place with headed pins. While protecting the soft tissues, quad tendon, and collateral ligaments, the anterior and posterior cuts were performed with a saw. The central two pins were removed and the posterior and anterior chamfers were cut next. The notch-cutting guide was placed. This was pinned to lateralize the femoral component as much as possible while keeping it flush on the cut surface. This was then pinned into position. A reciprocating saw was used to make the notch cut. A rasp smoothed the cut surfaces. The medial and lateral menisci were removed. A trial femoral component was then inserted, impacted down to the cut surfaces, and the lug holes were drilled. A provisional trial tibial component was placed and the knee was brought through range of motion. The polyethylene was trialed until there was good flexion and extension with excellent stability to the medial and lateral collaterals. The patella was tracking without thumbs. A size 8mm polyethylene component provided the best range of motion and stability with less than 2mm gapping with medial and lateral stress and full extension without significant hyperextension. The tibial cut surface was fully exposed. The tibia was then sized as a 5. The tibia had been previously marked during trialing to correspond to the center of the tibial component to help with rotation. The trial was aligned to this sangeeta, approximately rotated to the medial 1/3rd of the tibial tubercle. The trial was pinned into place. The tibia was prepared with a reamer and a keel punch and lug holes. The knee was then brought into extension and the patella was measured as 26mm. Using the patellar clamp and cut guide, this was resected to a flat surface with at least 13mm of thickness remaining. The size 38 patella fit the best. This was oriented and then clamped into position. The lugs were drilled. The trial components were removed. The final components were opened on the back table. The periosteal and capsular tissues, especially posteriorly, around the knee were then systematically injected with a periarticular cocktail consisting of 246mg of Ropivacaine, 0.5mg of Epinephrine, 0.08mg of Clonidine, and 30mg of Ketorolac, diluted to 100cc. On the back table, with the implants opened, the cement was mixed. One batch of high viscosity cement was prepared with vacuum assistance. After the cement was ready a small amount was placed on the cut surface of the patella and the patellar button was clamped into position and held. While the cement was hardening, the cementless knee components were placed. Starting with the tibial component, the tibia was subluxed anteriorly and the lug holes of the component were lined up. The tibia was then impacted with an impactor and mallet until the tibial component was in contact with the tibia. The final polyethylene component was inserted. Then, the femoral component was inserted. The lug holes were aligned and the component was impacted into position. The knee was irrigated with Surgiphor Betadine solution. This was allowed to sit in the knee for 3 minutes and then it was irrigated out with saline. After the cement had finally cured, approximately 15min, the clamp was removed from the patella and the knee was taken through range of motion. The patella was tracking with a no-thumbs technique. The capsule was then reapproximated with a No. 1 Vicryl at multiple locations. The capsule was finally closed with a No. 2 Stratafix, barbed suture. The second dosing of 1g TXA was started. Deep tissues were then reapproximated with 0 Vicryl and 2-0 Vicryl. The skin was closed with a running 3-0 Monocryl in a subcuticular fashion. This was reinforced Prineo skin dressing. A Mepilex silver dressing was applied along with a [id number] SADIE wrap. A CryoCuff was applied. Ronny was transferred to the hospital bed without difficulty an suffering no apparent complication. Ronny has a good prognosis. Physical therapy will start today and without restrictions, weight-bearing as tolerated. Aspirin 81mg BID will be used for DVT prophylaxis.
[2024-04-12] MEDS: oxyCODONE 5 MG TAB PO (10:23)
--- NOTE | 2024-04-12 11:18 | PT.INIE ---
PT Notes Visit Reasons: L TKR Physical Therapy Day Surgery Initial Evaluation Date: 04/12/2024 Referring Doctor: HEENA Clayton PT Orders: PT CONSULT: S/p Ortho Surgery Precautions: WBAT on the left LE with AD. Patient Profile/Admitting Diagnosis: Ronny is a 76-year-old male with degenerative joint disease of the left knee and status post left total knee arthroplasty on postoperative day 0. PMHX: Medical History (Updated 01/28/24 @ 13:42 by HEENA Mason) Actinic keratosis Arthralgia Sensorineural hearing loss of both ears BPH w urinary obs/LUTS (04/04/16) GERD (gastroesophageal reflux disease) Hammer toe Osteoarthritis Depression Cough Primary osteoarthritis of first carpometacarpal joint of left hand Surgical History S/P left inguinal hernia repair S/P right inguinal hernia repair x2 Colonoscopy - MAC (01/22/18) Social History/Home Situation: Lives with in a private home with a flight of steps to enter with rails on both sides. Independent with all aspects of ADLs prior to surgery although has had difficulty with mobility performance due to worsening arthritis. Equipment Owned/DME: None Subjective: Reported 2?3/10 pain at rest and with movement that did not significantly limit today's assessment. Reported mild lightheadedness upon sitting up at edge of bed that resolved with snf ambulation activity. Reported not having full control of R foot due to some persistent tingling. Objective: General Observation: Luis wrap's on left LE. Cryo/Cuff on left knee. TEDS on right leg and foot. Mental Status: A and O x 4 Pain: As above ROM: Right Lower Extremity: Hip flexion WFL. Hip abduction WFL. Knee flexion WFL. Ankle dorsiflexion WFL. Ankle plantarflexion WFL. Left Lower Extremity: Hip flexion WFL. Hip abduction WFL. Knee flexion 10 degrees to 100 degrees. Knee extension -10 degrees. Ankle dorsiflexion WFL. Ankle plantarflexion WFL. Strength: Right Lower Extremity: Hip flexors 5/5. Hip abductors 5/5. Knee flexors 5/5. Knee extensors 5/5. Ankle dorsiflexors 5/5. Ankle plantarflexors 5/5. Left Lower Extremity:Hip flexors 4/5. Hip abductors 4/5. Knee flexors 3-/5. Knee extensors 3-/5. Ankle dorsiflexors 5/5. Ankle plantarflexors 5/5. Sensation: Intact as to pain and light pressure in bilateral lower extremities Bed Mobility/Transfers: Minimal cueing provided for use of B hands as needed for support, movement sequence, AD management, and posture to reduce fall risk and minimize pain report Supine to sit standby assist Sit to stand contact-guard assist with FWW Stand to sit standby assist with FWW Bed to chair standby assist with FWW Gait: Facilitated safe and correct performance of level surface ambulation covering a distance of 150 feet with step to gait pattern using front wheeled walker and contact-guard assist of PT as well as wheelchair follow of nurse Javier for safety. Foot placement on the left asymmetric from the right due to residual effects from anesthesia but no LOB. Minimal verbal cueing provided for limb advancement, AD management, and posture to reduce fall risk and minimize pain report. Stairs: Guided patient with safe and correct negotiation of 3 x 4 inch steps and 2 x 6 inch steps while holding onto bilateral rails with step-to gait pattern and contact-guard assist with minimal verbal cueing for limb sequence and hand placement. Balance: Static Sitting: Normal Dynamic Sitting: Normal Static Standing: Fair Dynamic Standing: Fair Special Tests: Mobility Limitations Standardized Measure [facility] AM-PAC 6 clicks Basic Mobility Inpatient Short Form: Raw Score: 21 CMS Score: 29% deficit Informed Consent/Education: Patient instructed in purpose of PT consult. Packet containing TKA exercise protocol has been given to patient. Education and training on initial set of exercises that can be done at home have been completed with patient. Trained patient with correct performance of exercises below to maximize motor control, joint flexibility, soft tissue extensibility of the L knee musculature: Access Code: [email or web address] URL: [email or web address] Date: 04/12/2024 Prepared by: Sherley Park Exercises - Supine Quad Set - 1 x daily - 7 x weekly - 1 sets - 10 reps - 5 hold - Supine Heel Slide - 1 x daily - 7 x weekly - 1 sets - 10 reps - 5 hold - Supine Ankle Pumps - 1 x daily - 7 x weekly - 1 sets - 10 reps - 5 hold - Small Range Straight Leg Raise - 1 x daily - 7 x weekly - 1 sets - 10 reps - 5 hold - Seated March - 1 x daily - 7 x weekly - 1 sets - 10 reps - 5 hold Assessment: Patient requires the use of a front-wheeled walker for mobility ADL performance to maximize independence and reduce fall risk. Residual effects from anesthesia influencing asymmetric foot placement but no L OB on the left side. Patient presents with clinical signs and symptoms consistent with current/admitting diagnoses that have resulted to mobility limitations, gait instability, generalized weakness, and impairment of motor control as demonstrated by the following impairment level findings: 1. Decreased strength to left knee major muscle groups 2. Impaired standing balance 3. Limitation of joint range of motion in left knee Impairments are contributing to the following functional limitations: 1. Inability to safely ambulate without assistive device 2. Increase completion time for mobility ADL performance 3. Increased fall risk Patient is assessed as a 75260 moderate complexity based on the following: History: 68-year-old male with impairment level findings, functional limitations, and past medical history as indicated above Examination: Demonstrable impairment in strength, balance, and mobility level with underlying impairments and functional limitations as documented above Presentation: Evolving Decision Makin moderate complexity Goals: N/A. PT evaluation and 1-2 treatment sessions only for functional mobility training using recommended AD and for HEP instruction. Plan of Care/Treatment Plan: N/A. PT evaluation and 1-2 treatment session only for functional mobility training using recommended AD and for HEP instruction. DISCHARGE RECOMMENDATIONS: Home when medically cleared by orthopedic surgeon. Recommend outpatient PT services in order to optimize functional mobility outcomes and facilitate return to independent community ambulation without an assistive device. TREATMENT CODE/TIME: 9716 2 x 20 minutes for 1 unit, 9753 0 x 19 minutes for 1 unit (11:18-11:57). Thank you for the opportunity to participate in the care of this patient. Please sign an return this page within 30 days if you agree with the above POC. Thank you! Physician Signature Date [facility] Thank you for the opportunity to participate in the care of this patient. Sherley Park PT, DPT, CLT [facility] [place], [place]
[2024-04-12] MEDS: Tranexamic Acid 650 MG TAB 1300 MG PO (13:00)
--- NOTE | 2024-04-12 13:01 | W.ANESPOSTOP ---
Postoperative Evaluation Date, Time and Location Date Performed: 04/12/24 Time Performed: 12:40 Patient Location: Day Surgery Unit Vital Signs Most Recent Imported Vital Signs: Most Recent Vital Signs Temp Pulse Resp BP Pulse Ox 36.2 C L 96 H 18 120/85 97 04/12/24 11:58 04/12/24 12:30 04/12/24 11:58 04/12/24 12:30 04/12/24 12:30 Pain Score Most Recent Pain Score: Most Recent Pain Score Pain Level 0 04/12/24 12:30 Assessment Mental Status: Awake (Alert & Oriented to Patient Baseline) Airway and Respiratory Function: Patent airway with normal (patient baseline) respiratory exam Cardiovascular Function: Hemodynamically Stable Hydration Status: Adequately Hydrated Nausea & Vomiting: No Nausea or Vomiting Pain: Pt. Denies Any Pain Peripheral Nerve Block: Regional nerve block not resolved at time of post operative discharge Postoperative Comments:: Noted some left sided foot drop and some foot numbness. Did discuss this was most likely Dr. Damon's posterior capsule injection. I did notify Dr. Damon and he does concur. Dr. Damon cleared the patient for discharge from his perspective, patient is cleared from ANES as well as patient is able to ambulate and does not have any concerns. All questions answered.
== END 2024-04-12 13:24 | disposition home or self-care (01) ==
PROVIDERS: PCP Family Medicine; Visit Provider Student in an Organized Health Care Education/Training Program
PROC: (CPT 27447; principal; 2024-04-12 07:30)
DX: M17.12 Unilateral primary osteoarthritis, left knee (principal); K21.9 Gastro-esophageal reflux disease without esophagitis
CPT/HCPCS: 27447; C1776; 76942; 97162; 97530; J0665; J0690; J1100; J2371; J2401; J2405; J2704; J3010

== ENCOUNTER 2024-04-28 11:22 | Outpatient (CLI) | payer MEDICARE, SELFPAY ==
--- NOTE | 2024-04-28 11:00 | DI.RAD_ITS ---
Exam(s) XR KNEE LT 1V XR STANDING ALIGNMENT EXAM: XR STANDING ALIGNMENT and XR knee LT 1 V CLINICAL HISTORY: 1ST POST OP S/P L TKA. TECHNIQUE: 2D digital imaging was performed. Five images were obtained. COMPARISON: CR XR KNEE LT 3V AP,LAT,LUZ ELENA from 03/09/2023 FINDINGS: BONES: The hips are well maintained. The right knee is well maintained. There are stable postsurgic al changes of a left total knee replacement. The orthopedic hardware appears in good position. No s uspicious lucencies are seen about the orthopedic hardware. There is soft tissue swelling anteriorly . The ankles are well maintained.There is no significant leg length discrepancy. SOFT TISSUE: Normal. IMPRESSION: Stable left total knee replacement. DATA REPOSITORY: RADIATION DOSE DELIVERED:
== END 2024-04-28 11:23 | disposition home or self-care (01) ==
LOC: DIORS 11:23
PROVIDERS: PCP Family Medicine; Referring Provider Family Medicine; Visit Provider Student in an Organized Health Care Education/Training Program
DX: Z96.652 Presence of left artificial knee joint (principal); Z47.1 Aftercare following joint replacement surgery
CPT/HCPCS: 73560; 77073

== ENCOUNTER → 2024-05-30 10:32 | Outpatient (BNVA) | payer MEDICARE, SELFPAY | PROVIDERS: PCP Family Medicine; Visit Provider Student in an Organized Health Care Education/Training Program | DX: Z47.1 Aftercare following joint replacement surgery (principal); Z96.652 Presence of left artificial knee joint ==

== ENCOUNTER 2024-06-07 15:08 | Outpatient (REF) | payer MEDICARE, SELFPAY ==
[2024-06-07 16:45] LABS: Calculated LDL 108 mg/dL (<100); Cholesterol 186 mg/dL (<200); HDL Cholesterol 62 mg/dL (40-60); Triglyceride 81 mg/dL (<150)
== END 2024-06-07 15:09 | disposition home or self-care (01) ==
LOC: NCHCN 15:08
PROVIDERS: PCP Family Medicine; Visit Provider Family Medicine
DX: E78.89 Other lipoprotein metabolism disorders (principal); Z00.00 Encounter for general adult medical examination without abnormal findings
CPT/HCPCS: 80061

== ENCOUNTER → 2024-06-23 08:27 | Outpatient (BNVA) | payer MEDICARE, SELFPAY | PROVIDERS: PCP Family Medicine; Visit Provider Urology | DX: N40.1 Benign prostatic hyperplasia with lower urinary tract symptoms (principal); N13.8 Other obstructive and reflux uropathy; R97.20 Elevated prostate specific antigen [PSA]; Z80.42 Family history of malignant neoplasm of prostate | CPT/HCPCS: 99214 ==

== ENCOUNTER → 2024-07-06 10:19 | Outpatient (BNVA) | payer MEDICARE, SELFPAY | PROVIDERS: PCP Family Medicine; Visit Provider Student in an Organized Health Care Education/Training Program | DX: S46.011A Strain of muscle(s) and tendon(s) of the rotator cuff of right shoulder, initial encounter (principal); S46.111A Strain of muscle, fascia and tendon of long head of biceps, right arm, initial encounter; X58.XXXA Exposure to other specified factors, initial encounter; Z98.890 Other specified postprocedural states | CPT/HCPCS: 99213 ==

== ENCOUNTER 2024-10-17 14:26 | Outpatient (CLI) | payer MEDICARE, SELFPAY ==
--- NOTE | 2024-10-17 11:15 | DI.RAD_ITS ---
Exam(s) XR KNEE LT 3V AP,LAT,LUZ ELENA EXAM: XR KNEE LT 3V AP,LAT,LUZ ELENA CLINICAL HISTORY: pain. TECHNIQUE: 2D digital imaging was performed. Three images were obtained. Merchant's, AP and lateral views were obtained. COMPARISON: CR XR KNEE LT 1V from 04/28/2024 CR XR STANDING ALIGNMENT from 04/28/2024 FINDINGS: BONES: There are stable post operative changes of a left total knee arthroplasty present. No fractur e or dislocation. JOINTS: The orthopedic hardware is in good position. No evidence of hardware loosening. There is a small joint effusion. SOFT TISSUE: Normal. IMPRESSION: Stable left total knee arthroplasty. DATA REPOSITORY: RADIATION DOSE DELIVERED:
== END 2024-10-17 14:27 | disposition home or self-care (01) ==
LOC: DIORS 14:26
PROVIDERS: PCP Family Medicine; Referring Provider Family Medicine; Visit Provider Physician Assistant
DX: Z96.652 Presence of left artificial knee joint (principal); M76.32 Iliotibial band syndrome, left leg
CPT/HCPCS: 20610; 73562; J1010

== ENCOUNTER 2024-12-20 15:33 | Outpatient (CLI) | payer MEDICARE, SELFPAY ==
[2024-12-20 22:42] LABS: PSA, Diagnostic 2.7 ng/mL (<=6.5)
== END 2024-12-20 15:34 | disposition home or self-care (01) ==
LOC: LBO 15:39
PROVIDERS: PCP Family Medicine; Visit Provider Urology
DX: R97.20 Elevated prostate specific antigen [PSA] (principal)
CPT/HCPCS: 36415; 84153

== ENCOUNTER 2025-01-04 09:50 | Outpatient (REF) | payer MEDICARE, SELFPAY ==
[2025-01-04 14:19] LABS: Abs Immature Grans 0.02 10^3/uL (0.0-0.06); Absolute Basophil Count 0.03 10^3/uL (0.0-0.2); Absolute Eosinophil Count 0.21 10^3/uL (0.0-0.7); Absolute Monocyte Count 0.67 10^3/uL (0.1-0.8); Absolute Neutrophil Count 3.81 10^3/uL (1.2-6.7); Basophils % 0.4 %; HCT 47.7 % (40.0-50.0); HGB 15.9 g/dL (13.5-17.5); Immature Grans % 0.3 %; Lymphocytes % 32.7 %; MCH 29.8 pg (27.0-33.0); MCHC 33.3 % (32.0-36.0); MCV 89 fL (80-95); MPV 10.5 fL (8.0-11.0); Monocytes % 9.5 %; Neutrophils % 54.1 %; Platelet Count 191 10^3/uL (130-400); RBC 5.34 10^6/uL (4.36-5.78); RDW 13.2 % (11.8-14.1); RDW-SD 43.3 fL; WBC 7.04 10^3/uL (4.4-10.8)
[2025-01-04 14:35] LABS: ALT 29 U/L (16-63); AST 20 U/L (15-37); Albumin 3.8 g/dL (3.4-5.0); Alkaline Phosphatase 50 U/L (46-116); Anion Gap 6.4 mmol/L (3-11); BUN 21 mg/dL (7-18); Bilirubin, Total 0.35 mg/dL (0.2-1.0); CO2 27.6 mmol/L (21.0-32.0); CREATININE 1.4 mg/dL (0.70-1.30); Calcium 9.6 mg/dL (8.5-10.1); Chloride 108 mmol/L (98-107); Estimated GFR 53.74 (mL/min/1.73m2); Glucose 100 mg/dL (74-106); Potassium 4.4 mmol/L (3.5-5.1); Sodium 142 mmol/L (136-145); Total Protein 6.6 g/dL (6.4-8.2)
== END 2025-01-04 09:51 | disposition home or self-care (01) ==
LOC: NCHCN 09:50
PROVIDERS: PCP Family Medicine; Visit Provider Family Medicine
DX: I10 Essential (primary) hypertension (principal); R10.9 Unspecified abdominal pain
CPT/HCPCS: 80053; 85025

== ENCOUNTER 2025-01-13 00:22 | Outpatient (CLI) | payer MEDICARE, SELFPAY ==
--- NOTE | 2025-01-13 | DI.CT_ITS ---
Exam(s) CT ABDOMEN PELVIS W EXAM: CT ABDOMEN PELVIS W CLINICAL HISTORY: ABD PAIN R10.9 TECHNIQUE: Imaging Protocol: Axial computed tomography images with coronal and sagittal reformatted images were created and reviewed. CONTRAST MATERIAL: Intravenous: Omnipaque 350 Contrast volume:75 mL Oral: Yes CT CT ABDOMEN PELVIS W from 10/03/[address] BRAIN NECK CTA from 06/10/2023 US POCUS EXAM from 12/27/2024 FINDINGS: ABDOMEN: Lung Bases: There is a small hiatal hernia. Liver: Normal density. No measurable mass. Portal, Superior Mesenteric, and Splenic Veins: Unremarkable. Gallbladder and Biliary Tract: No radiodense calculus or dilation. Pancreas: Normal density, no abnormal calcifications or inflammatory process. Spleen: Normal. Adrenals: No masses seen. Kidneys: Normal size, contour and axis. No radiodense stones or obstructive uropathy. No masses seen. Abdominal Aorta: Abdominal portion non-dilated. Atherosclerotic calcification is present. Bowel: There is a large amount of stool seen in the colon and rectum consistent with constipation. T here are few scattered diverticula in the colon. There is no bowel wall thickening or obstruction. There is no evidence of appendicitis. The stomach is incompletely distended limiting evaluation. Peritoneal Cavity: No ascites, collection or mesenteric inflammatory response. No free air. Lymph Nodes: Within normal limits. Bones: Within normal limits for the patient's age. Soft Tissues: Unremarkable. PELVIS: Bladder: There is mild thickening of the wall of the urinary bladder diffusely. This may be due to u nderdistention. Chronic bladder outlet obstruction or cystitis should also be considered. Reproductive Organs: The prostate gland is enlarged and impinges upon the base of the urinary bladder . Lymph Nodes: Within normal limits. Bones: Within normal limits for the patient's age. IMPRESSION: 1. No acute abdominal or pelvic process. 2. Large amount of stool throughout the rectum and colon consistent with constipation. 3. Colonic diverticulosis without evidence of acute diverticulitis. 4. Enlarged prostate gland. 5. Mild thickening of the wall of the urinary bladder. This may be due to underdistention, however ch ronic bladder outlet obstruction or cystitis should also be considered. Please correlate clinically. RADIATION DOSE DELIVERED: 338.49mGy.cm Total DLP DATA REPOSITORY: All CT scans at this facility are submitted to the National Radiology Data Registry (NRDR) Dose Index Registry (DIR) with the [employer] ([employer]). RADIATION OPTIMIZATION: All CT scans at this facility use at least one of these dose optimization te chniques: automated exposure control; mA and/or kV adjustment per patient size (includes targeted exa ms where dose is matched to clinical indication); or iterative reconstruction.
[2025-01-13] MEDS: Barium Sulfate 2% W/V-Berry Smoothie 450 ML BTL PO ×2 (08:51→08:52)
[2025-01-13] MEDS: Omnipaque 350 MG/ML 100 ML BTL 75 ML IJ (11:09)
[2025-01-13] MEDS: Normal Saline - Diluent 50 ML VIAL IJ (11:09)
== END 2025-01-13 00:42 ==
LOC: DI 00:22
PROVIDERS: PCP Family Medicine; Visit Provider Family Medicine
DX: K57.30 Diverticulosis of large intestine without perforation or abscess without bleeding (principal); N40.1 Benign prostatic hyperplasia with lower urinary tract symptoms
CPT/HCPCS: 74177; J3490

== ENCOUNTER 2025-04-13 10:29 | Outpatient (CLI) | payer MEDICARE, SELFPAY ==
--- NOTE | 2025-04-13 10:31 | DI.RAD_ITS ---
Exam(s) XR KNEE LT 2V AP,LAT EXAM: XR KNEE LT 2V AP,LAT INDICATION: ANNUAL F/U L TKA. COMPARISON: CR XR KNEE LT 3V AP,LAT,LUZ ELENA from 10/17/2024 TECHNIQUE: 2D digital imaging was performed. Two views. FINDINGS: Stable alignment of total knee prosthesis. No abnormal surrounding lucencies. DATA REPOSITORY: RADIATION DOSE DELIVERED:
== END 2025-04-13 10:30 | disposition home or self-care (01) ==
LOC: DIORS 10:29
PROVIDERS: PCP Family Medicine; Visit Provider Student in an Organized Health Care Education/Training Program
DX: Z47.1 Aftercare following joint replacement surgery (principal); Z96.652 Presence of left artificial knee joint
CPT/HCPCS: 99213; 73560

== ENCOUNTER → 2025-06-27 15:34 | Outpatient (BNVA) | payer MEDICARE, OTHER, SELFPAY | PROVIDERS: PCP Family Medicine; Visit Provider Urology | DX: N40.1 Benign prostatic hyperplasia with lower urinary tract symptoms (principal); N13.8 Other obstructive and reflux uropathy; R97.20 Elevated prostate specific antigen [PSA]; Z80.42 Family history of malignant neoplasm of prostate | CPT/HCPCS: 99214 ==